=== PATIENT | female | born 1960 | race Caucasian/White ===

== ENCOUNTER → 2016-08-23 | Outpatient (CLI) | payer BC ==
--- NOTE | 2016-08-24 05:52 | WWHP ---
DATE OF SERVICE: 08/23/2016 CHIEF COMPLAINT: The patient is here for her routine gynecologic exam and mammogram. HPI: This is a 56-year-old G0 with an LMP of 2008. The patient is without gynecologic complaints and denies any postmenopausal bleeding. She has been on low-dose HRT for a number of years. She has been prescribed HRT by her primary care physician. She tried to wean off of HRT in 02/18, but the more she decreased the dose the greater her hot flashes were. She states they became severe and she was also very edgy and mood and therefore she started HRT back up again and she states she is doing much better with HRT. PAST MEDICAL HISTORY: Chronic hypertension, asthma and allergies, overactive bladder and anxiety. MEDICATIONS: 1. Femhrt 1/5 one daily. 2. Mobic 15 mg daily. 3. Lasix 20 mg daily. 4. Lexapro 20 mg daily. 5. Potassium supplement 1 daily. 6. Singulair 10 mg daily. 7. Ditropan XL 10 mg daily. 8. Multivitamin 1 daily. 9. Ke[place]-3 supplement daily. Allergies to SULFA which caused difficulty breathing and eye swelling. PAST SURGICAL HISTORY: Left knee replacement 2011 and right knee replacement 2015, also hand surgery in the past. PAST VISUAL SPECIALIST HISTORY: She has been menopausal since 2007 and has no history of STDs. SOCIAL HISTORY: She denies tobacco and drug use and has about 5 alcoholic drinks per year. 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 FAMILY HISTORY: Father had an SC, aortic aneurysm and macular degeneration. Mother had macular degeneration and dementia. Brother and an uncle had renal disease. She denies family history of cancer of the breast, uterus, ovaries or colon. REVIEW OF SYSTEMS: She has lost about 13 pounds with Weight [employer] recently. This has been with diet and exercise. She denies respiratory, cardiac, or GI problems. PHYSICAL EXAM: Blood pressure 163/79. Height 5 feet 7 inches. Weight 317 pounds. Temperature 97.7, pulse 79. This a well-developed, obese white female who is alert and oriented x3 in no acute distress. HEENT is within normal limits. NECK: Supple without mass or thyromegaly. CHEST AND LUNGS: Clear to auscultation. HEART: Regular rate and rhythm. Breasts are without mass or discharge. Axillary exam is negative for adenopathy. BACK: Negative for CVA tenderness. ABDOMEN: Obese, soft, nontender, without palpable masses. PELVIC EXAM: External genitalia appears normal. Cervix and vagina appear normal with minimal atrophy. There is no unusual discharge and no evidence of prolapse. The uterus is midposition, nongravid size and nontender. There are no palpable adnexal masses or tenderness. Bimanual examination is limited secondary to her size. Rectovaginal exam is negative for mass or tenderness and is negative for occult blood. EXTREMITIES: Nontender. IMPRESSION: 1. A 56-year-old menopausal female on HRT. 2. Obesity. 3. Unremarkable gynecologic exam. PLAN: 1. Pap smear was performed. 2. Self-breast examination was discussed. 3. Mammogram will be done today. 4. Osteoporosis prevention was discussed. 5. I have recommended screening colonoscopy based on her age and she states she will do this through her family doctor. 6. We had a long discussion regarding HRT including the possible increased risk for heart attack, stroke and breast cancer. She states she has weighed the benefits and the risks and would like to continue HRT at this time. I have recommended that she try to wean down or off at least yearly. She states she had a prescription for her HRT and this was given through her family physician. 7. She will follow up with Dr. Villeda regarding her elevated blood pressures. 8. She will return in one year.
--- NOTE | 2016-08-24 09:21 | MM ---
Reason for exam: screening (asymptomatic). Last mammogram was performed 1 year ago. History: Patient is postmenopausal, history of other cancer, and is nulliparous. Taking estrogen for 2 years 6 months beginning at age 50. Taking progesterone for 2 years 6 months beginning at age 50. Physical Findings: A clinical breast exam by your physician is recommended on an annual basis and results should be correlated with mammographic findings. MG Screening Mammo w CAD Bilateral CC and MLO view(s) were taken. Prior study comparison: August 18, 2015, bilateral MG diagnostic mammo w CAD ABIOLA. August 11, 2014, right breast MG work up mamm w CAD RT. The breast tissue is heterogeneously dense. This may lower the sensitivity of mammography. Finding: There is a high density, indistinct round mass located 9 cm from the nipple in the middle position of the right breast, may be summation. New finding since August 18, 2015 and August 11, 2014. ASSESSMENT: Incomplete: need additional imaging evaluation, BI-RAD 0 RECOMMENDATION: Special view mammogram of the right breast. If lesion persists on supplemental views, image directed ultrasound is recommended. [facility] will attempt to contact patient to return for supplemental views and ultrasound if indicated.
== END | disposition home or self-care (01) ==
LOC: WWCWWP 14:41
PROVIDERS: ATTEND Obstetrics & Gynecology
DX: Z12.31 Encounter for screening mammogram for malignant neoplasm of breast (principal)

== ENCOUNTER → 2016-08-31 | Outpatient (CLI) | payer BC ==
--- NOTE | 2016-08-31 09:48 | MM ---
Reason for exam: additional evaluation requested from abnormal screening. Last mammogram was performed less than 1 month ago. History: Patient is postmenopausal, history of other cancer, and is nulliparous. Taking estrogen for 2 years 6 months beginning at age 50. Taking progesterone for 2 years 6 months beginning at age 50. Physical Findings: Nurse did not find any significant physical abnormalities on exam. MG Work Up Mamm w CAD RT ML, spot compression CC, and spot compression MLO view(s) were taken of the right breast. Prior study comparison: August 23, 2016, bilateral MG screening mammo w CAD. August 18, 2015, bilateral MG diagnostic mammo w CAD ABIOLA. There are scattered fibroglandular densities. Asymmetric breast tissue on the CC view only. No significant new findings when compared with previous films. These results were verbally communicated with the patient and result sheet given to the patient on 08/31/16. ASSESSMENT: Incomplete: need additional imaging evaluation, BI-RAD 0 RECOMMENDATION: Ultrasound of the right breast. (10-2 o'clock, 9cm from the nipple)
--- NOTE | 2016-08-31 09:50 | USB ---
Reason for exam: additional evaluation requested from abnormal screening. History: Patient is postmenopausal, history of other cancer, and is nulliparous. Taking estrogen for 2 years 6 months beginning at age 50. Taking progesterone for 2 years 6 months beginning at age 50. US Breast Workup Limited RT Right breast ultrasound demonstrates a 0.2 x 0.3 x 0.3cm oval lesion too small to characterize at 10 o'clock. These results were verbally communicated with the patient and result sheet given to the patient on 08/31/16. ASSESSMENT: Suspicious, BI-RAD 4 RECOMMENDATION: Ultrasound core biopsy of the right breast. Called Dr. Johnson with mammographic findings and has scheduled an appointment for the patient for 09/02/16 at 10:[address] Vela. PRELIMINARY REPORT CALLED AND FAXED TO DR. VELA ON 08/31/16/TP.
== END | disposition home or self-care (01) ==
LOC: RADMAMWWP 06:52
PROVIDERS: ATTEND Obstetrics & Gynecology
DX: R92.8 Other abnormal and inconclusive findings on diagnostic imaging of breast (principal)
CPT/HCPCS: 76642; G0206

== ENCOUNTER → 2016-09-08 | Day surgery (SDC) | payer BC ==
[2016-09-08 11:37] VITALS: RESP 16; TEMP 97.8; BMI 49.6
[2016-09-08 12:45] VITALS: BP 129/70; PULSE 74
--- NOTE | 2016-09-08 13:02 | USB ---
EXAMINATION TYPE: US breast aspiration single RT, MG diagnostic mammo RT wo CAD DATE OF EXAM: 09/08/2016 COMPARISON: NONE CLINICAL HISTORY: R92.8 ABN MAMMO. Please note previous report indicates lesion at the right 10:00 position however this was mislabeled and the lesion is within the right breast 2:00 position. Informed consent was obtained and all the patient's questions were answered. Standard sterile technique was utilized. 1% lidocaine was injected for local anesthesia. The patient was prepped and draped in the usual sterile fashion. 25- gauge needle was introduced into the lesion in question and approximately 0.5 cc of aspirate was obtained. Microclip marker was deployed at the site of aspiration. Postprocedural mammogram demonstrates appropriate deployment of clip marker device. Patient tolerated the procedure well and left the department in stable condition. Aspirate wasn't sent to cytology for further evaluation. IMPRESSION: Successful ultrasound-guided cyst aspiration right breast 2:00 position. Pathology Results: Benign BREAST, RIGHT, ASPIRATE: VIRTUALLY ACELLULAR SPECIMEN CONSISTING OF BLOOD, NON- DIAGNOSTIC. Recommendation Follow up mammogram of the right breast in 6 months. Non-diagnostic results. The 2 o'clock biopsy clip does not correspond to the 11- 12 o'clock mammographic focal asymmetry. A 6 moths follow up mammogram recommended. SAMANTHAD
== END ==
LOC: RADUSWWP 11:06
PROVIDERS: ATTEND Surgery
DX: N60.01 Solitary cyst of right breast (principal); R92.8 Other abnormal and inconclusive findings on diagnostic imaging of breast
CPT/HCPCS: 88305; 88173; 76942; 19000; G0206; A4648; J2001

== ENCOUNTER → 2017-03-07 | Outpatient (CLI) | payer BC ==
--- NOTE | 2017-03-07 11:59 | MM ---
Reason for exam: follow-up at short interval from prior study. Last mammogram was performed 6 months ago. History: Patient is postmenopausal, history of other cancer, and is nulliparous. Benign US breast aspiration single RT of the right breast, September 08, 2016. Took estrogen for 2 years 6 months beginning at age 50. Took progesterone for 2 years 6 months beginning at age 50. Physical Findings: Nurse did not find any significant physical abnormalities on exam. MG 3D Diag Mammo W/Cad RT CC and MLO view(s) were taken of the right breast. Prior study comparison: September 08, 2016, right breast MG diagnostic mammo RT wo CAD. August 31, 2016, right breast MG work up mamm w CAD RT. The breast tissue is heterogeneously dense. This may lower the sensitivity of mammography. The previously seen focal asymmetry at 11 o'clock middle depth is unchanged from the prior. This appears as fibroglandular tissue on 3D. Precautionary 6 month follow up is recommended. These results were verbally communicated with the patient and result sheet given to the patient on 03/07/17. ASSESSMENT: Probably benign, BI-RAD 3 RECOMMENDATION: Follow-up diagnostic mammogram of both breasts in 6 months. Back on schedule for August 2017.
== END | disposition home or self-care (01) ==
LOC: RADMAMWWP 10:44
PROVIDERS: ATTEND Family Medicine
DX: R92.8 Other abnormal and inconclusive findings on diagnostic imaging of breast (principal)
CPT/HCPCS: 77065; G0279

== ENCOUNTER → 2017-04-20 | Outpatient (CLI) | payer BC ==
--- NOTE | 2017-04-20 18:27 | CONS ---
CONSULTATION DATE OF SERVICE: 04/20/2016. HISTORY: A 56-year-old lady, has been evaluated in the sleep center for possible obstructive sleep apnea-hypopnea syndrome. HISTORY: Sleep awake evaluation. The patient's usual sleep schedule is from 9 p.m. to 5 a.m. on weekdays and from around 9 p.m. to 8 a.m. on weekends. No problem with falling asleep. No TV in bedroom. Patient sleeps with her , according to him, she has snoring, episodes of stopped breathing, and grinding teeth. The patient wakes up from sleep with a dry mouth, gasping for air, sweating, restless legs, up to 6 times per night with up to 4 episodes of nocturia. No history of hypnagogic hallucinations, sleep paralysis or cataplexy. During the day, patient feels significantly sleepy. [place] Sleepiness Scale is in high range of 14. Usually patient does not take any naps. PAST MEDICAL HISTORY: Positive for hypertension, swelling of the legs, depression, polyarthritis, asthma. PAST SURGICAL HISTORY: Bilateral total knee replacement, several surgeries on the finger for fusion of interphalangeal joints for severe arthritis, and hernia repair. MEDICATIONS: 1. Singulair. 2. Lexapro. 3. Lasix. 4. Potassium supplement. 5. Multivitamin supplements. 6. . 7. Glucosamine with chondroitin. 8. Carvedilol. 9. Dulera on p.r.n. basis, inhaler. SOCIAL HISTORY: Positive for smoking one pack for 16 years, quit 20 years ago. Alcohol consumption very rarely. FAMILY HISTORY: Heart problems, arthritis, snoring, diabetes, thyroid problems. REVIEW OF SYSTEMS: Multiple awakenings from sleep, sleepiness during the day, swelling of the legs. PHYSICAL EXAMINATION: GENERAL A pleasant patient without any distress. VITAL SIGNS BP 149/69, HR 79, RR 16, height 5 feet 6 inches, weight 327.8, BMI 52.7, neck 17-1/2 inches circumference, temperature 98.2, oxygen saturation at room air 93%. HEENT: PERRLA, EOMI, evaluation of oropharynx showed extremely low position of soft palate. Mallampati 4. Tongue protrudes midline. NECK: Supple, no JVD. Thyroid is not palpable. LUNGS: Ear to percussion and to auscultation. Good air exchange. No wheezing or rhonchi. HEART: S1, S2 regular. No murmurs, gallops, or rubs. ABDOMEN: Obese. Soft and nontender. Bowel sounds are present. No organomegaly appreciated. EXTREMITIES: 2+ ankle edema. No clubbing or cyanosis. Hands, possible ulnar deformity of joints. WORKFORCE SERVICES REPRESENTATIVE: Awake, alert, and oriented X3. Cranial nerves 2 to 7 intact. There is no fasciculation or atrophy. noted. No focal deficits observed. IMPRESSION: 1. Snoring, witnessed episodes of stopped breathing during the sleep, extremely low position of soft palate, excessive daytime sleepiness, wide neck, obstructive sleep apnea-hypopnea syndrome. 2. Obesity, BMI 52.7. 3. Hypertension. Significant swelling of both legs. 4. Depression. 5. History of polyarthritis. 6. Status post fusion on several interphalangeal joints of both hands, for arthritis. 7. Asthma. 8. Status post bilateral total knee replacement. 9. Status post hernia repair. PLAN: 1. Polysomnography for evaluation of patient's breathing during sleep. 2. CPAP/BiPAP titration if sleep study confirms obstructive sleep apnea-hypopnea syndrome. 3. Preferable position during sleep on the side. 4. No driving if patient feels any sleepiness. Patient is aware of civil and criminal liability for unsafe driving. 5. I will see patient for follow up visit to explain results of testing and following plan. Thank you very much for referring this patient for consultation. Sincerely, Liam Rodas MD, PhD, FAASM Diplomat of [place] [employer] [place] [employer] Mat Gauger of [facility] MMODL / IJN: [id number] /
== END | disposition home or self-care (01) ==
LOC: SLEEP 15:53
PROVIDERS: ATTEND Internal Medicine
DX: G47.33 Obstructive sleep apnea (adult) (pediatric) (principal); E66.9 Obesity, unspecified; I10 Essential (primary) hypertension; J45.909 Unspecified asthma, uncomplicated; F32.9 Major depressive disorder, single episode, unspecified; Z87.39 Personal history of other diseases of the musculoskeletal system and connective tissue; Z98.1 Arthrodesis status; Z96.653 Presence of artificial knee joint, bilateral; Z98.890 Other specified postprocedural states; Z68.43 Body mass index [BMI] 50.0-59.9, adult; Z79.899 Other long term (current) drug therapy; Z87.891 Personal history of nicotine dependence
CPT/HCPCS: 99211

== ENCOUNTER → 2017-05-16 | Outpatient (CLI) | payer BC ==
--- NOTE | 2017-05-16 12:29 | P.STRESS ---
- Stress Test Note Stress Test Results/Findings: Exam Performed: stress echo exercise Exam Date: 05/16/17 Reason for Exam: ABNORMAL EKG Height: 5 ft 7 in Weight: 149.685 kg Protocol: TING Stage: 2 Duration of Exercise: 4:00 Resting Heart Rate: 102 Resting Blood Pressure: 166/54 Maximum Achieved Heart Rate: 152 Maximum Achieved Blood Pressure: 192/81 85% PMHR: 139 100% PMHR: 163 METS: 5.8 Technologist Comment: Stress Test Results/Findings: This is a 56-year-old female with history of hypertension, hypercholesterolemia and family history of ischemic heart disease being evaluated because of symptoms of shortness of breath and abnormal EKG. Baseline EKG showed sinus rhythm with a normal PA interval and QRS duration. Patient walked on the Ting protocol for 4 minutes achieving a maximal heart rate of 152 with blood pressure 184/65. EKGs taken during and after the exercise showed about 1 mm J- point depression with upsloping ST segments. Patient did not sense any chest pain. She did complain of shortness of breath. Echo data: Baseline echo images showed normal wall motion and thickening. Exercise echo images showed lack of augmentation of the wall motion in the anteroapical and also in the lateral wall area compared to the rest of the segments which showed good augmentation. Final impression: #1. Borderline ST-T changes with upsloping ST segments which are nonspecific though ischemia cannot be excluded. #2. Ischemia in the anterior and lateral wall cannot be excluded on this study. Further evaluation may be necessary to rule out ischemia.
--- NOTE | 2017-05-16 13:34 | ECHOS ---
- Stress Test Note Stress Test Results/Findings: Exam Performed: stress echo exercise Exam Date: 05/16/17 Reason for Exam: ABNORMAL EKG Height: 5 ft 7 in Weight: 149.685 kg Protocol: TING Stage: 2 Duration of Exercise: 4:00 Resting Heart Rate: 102 Resting Blood Pressure: 166/54 Maximum Achieved Heart Rate: 152 Maximum Achieved Blood Pressure: 192/81 85% PMHR: 139 100% PMHR: 163 METS: 5.8 Technologist Comment: Stress Test Results/Findings: This is a 56-year-old female with history of hypertension, hypercholesterolemia and family history of ischemic heart disease being evaluated because of symptoms of shortness of breath and abnormal EKG. Baseline EKG showed sinus rhythm with a normal VT interval and QRS duration. Patient walked on the Ting protocol for 4 minutes achieving a maximal heart rate of 152 with blood pressure 184/65. EKGs taken during and after the exercise showed about 1 mm J- point depression with upsloping ST segments. Patient did not sense any chest pain. She did complain of shortness of breath. Echo data: Baseline echo images showed normal wall motion and thickening. Exercise echo images showed lack of augmentation of the wall motion in the anteroapical and also in the lateral wall area compared to the rest of the segments which showed good augmentation. Final impression: #1. Borderline ST-T changes with upsloping ST segments which are nonspecific ,though ischemia cannot be excluded. #2. Ischemia in the anterior and lateral wall cannot be excluded on this study. Further evaluation may be necessary to rule out ischemia. LORRAINE
--- NOTE | 2017-05-16 18:57 | ECHOF ---
Referral Reason:R94.31 abnormal EKG, I10 hypertension MEASUREMENTS -------- HEIGHT: 170.2 cm WEIGHT: 149.7 kg BP: RVIDd: 3.3 cm (< 3.3) IVSd: 1.2 cm (0.6 - 1.1) LVIDd: 5.1 cm (3.9 - 5.3) LVPWd: 1.2 cm (0.6 - 1.1) IVSs: 1.8 cm LVIDs: 3.2 cm LVPWs: 1.6 cm LA Diam: 3.6 cm (2.7 - 3.8) LAESV Index (A-L): 27.78 ml/m Ao Diam: 3.7 cm (2.0 - 3.7) AV Cusp: 2.6 cm (1.5 - 2.6) MV EXCURSION: 14.577 mm (> 18.000) MV EF SLOPE: 48 mm/s (70 - 150) EPSS: 0.9 cm MV E David: 0.67 m/s MV DecT: 280 ms MV A Davdi: 0.89 m/s MV E/A Ratio: 0.75 FINDINGS -------- Sinus rhythm. This was a technically adequate study. The left ventricular size is normal. There is borderline concentric left ventricular hypertrophy. Overall left ventricular systolic function is normal with, an EF between 55 - 60 %. The right ventricle is mildly enlarged. Normal LA size by volume 22+/-6 ml/m2. The right atrium is normal in size. There is mild aortic valve sclerosis. Mild mitral annular calcification present. The tricuspid valve appears structurally normal. Trace/mild (physiologic) pulmonic regurgitation. The aortic root is dilated measuring 3.7cm. Normal inferior vena cava with normal inspiratory collapse consistent with estimated right atrial pre ssure of 5 mmHg. There is no pericardial effusion. CONCLUSIONS -------- 1. Sinus rhythm. 2. This was a technically adequate study. 3. The left ventricular size is normal. 4. There is borderline concentric left ventricular hypertrophy. 5. Overall left ventricular systolic function is normal with, an EF between 55 - 60 %. 6. The right ventricle is mildly enlarged. 7. Normal LA size by volume 22+/-6 ml/m2. 8. The right atrium is normal in size. 9. There is mild aortic valve sclerosis. 10. Mild mitral annular calcification present. 11. The tricuspid valve appears structurally normal. 12. Trace/mild (physiologic) pulmonic regurgitation. 13. The aortic root is dilated measuring 3.7cm. 14. Normal inferior vena cava with normal inspiratory collapse consistent with estimated right atrial pressure of 5 mmHg. 15. There is no pericardial effusion. CHERRY GROWER: Kerry Velazquez RDCS
== END | disposition home or self-care (01) ==
LOC: RADNMMAIN 10:05
PROVIDERS: ATTEND Family Medicine
DX: I11.9 Hypertensive heart disease without heart failure (principal); I37.1 Nonrheumatic pulmonary valve insufficiency; I35.8 Other nonrheumatic aortic valve disorders; Z88.2 Allergy status to sulfonamides
CPT/HCPCS: 93017; 93306; 93350

== ENCOUNTER → 2017-05-30 | Outpatient (CLI) | payer BC ==
--- NOTE | 2017-05-30 17:43 | XR ---
EXAMINATION TYPE: XR chest 2V DATE OF EXAM: 05/30/2017 COMPARISON: Previous dated 09/30/2012 HISTORY: J 45.397 TECHNIQUE: Frontal and lateral views of the chest are obtained. FINDINGS: There is no focal air space opacity, pleural effusion, or pneumothorax seen. The cardiac silhouette size is within normal limits. There are prominent lung volumes. The osseous structures ar e intact. IMPRESSION: No acute cardiopulmonary process.
== END | disposition home or self-care (01) ==
LOC: RADXRMAIN 13:12
PROVIDERS: ATTEND Family Medicine
DX: J45.909 Unspecified asthma, uncomplicated (principal); Z78.0 Asymptomatic menopausal state
CPT/HCPCS: 71046

== ENCOUNTER → 2017-06-19 | Outpatient (CLI) | payer BC ==
--- NOTE | 2017-06-20 10:33 | BD ---
EXAMINATION TYPE: MG DEXA axial skeleton. DATE OF EXAM: 06/19/2017 COMPARISON: NONE CLINICAL HISTORY: Postmenopausal female Height: 65.7 IN Weight: 325 LBS FRAX RISK QUESTIONS: Alcohol (3 or more units per day): NO Family History (Parent hip fracture): NO Glucocorticoids (More than 3mos): NO (Ex: prednisone, prednisolone, methylprednisolone, dexamethasone, and hydrocortisone). History of Fracture in Adulthood: NO Secondary Osteoporosis: 1. Type 1 Diabetes: NO 2. Hyperthyroidism: NO 3. Menopause before 45: NO 4. Malnutrition: NO 5. Chronic liver disease: NO Rheumatoid Arthritis: NO Current Tobacco Use: NO RISK FACTORS HISTORY OF: History of Wrist Fracture: YES LEFT When: 1978 Family History of Osteoporosis: YES MOTHER AND SISTER Active: YES Postmenopausal woman: AGE 47 Take estrogen and/or progesterone medications: NOT NOW How long: CONTROL FOR 5 YEARS AND HORMONES FOR 5 YEARS MEDICATIONS: Additional Medications: CALCIUM, VIT D, SINGULAIR, LEXAPRO, LASIX, POTASSIUM, GLUCOSAMINE, DULERA, CO REG EXAM MEASUREMENTS: Bone mineral densitometry was performed using the [employer] System. Bone mineral density as measured about the Lumbar spine is: ----- L1-L4(G/cm2): 1.350 T Score Values are as follows: ----- L2: 0.8 ----- L3: 1.8 ----- L4: 0.5 ----- L1-L4: 1.4 Bone mineral density BASELINE Bone mineral density about the R hip (g/cm2): 0.829 Bone mineral density about the L hip (g/cm2): 0.898 T Score values are as follows: -----R Neck: -1.0 -----L Neck: -1.5 -----R Total: 0.4 -----L Total: -0.1 Bone mineral density BASELINE IMPRESSION: Osteopenia (T Score between -2.5 and -1) at Femoral neck level in the left hip. There is slightly increased risk of fracture and the patient may be considered for treatment. Re-Screen 2-5 years. NOTE: T-SCORE=SD OF THE YOUNG ADULT MEAN.
== END | disposition home or self-care (01) ==
LOC: RADBDWWP 16:04
PROVIDERS: ATTEND Family Medicine
DX: M85.859 Other specified disorders of bone density and structure, unspecified thigh (principal); Z78.0 Asymptomatic menopausal state
CPT/HCPCS: 77080

== ENCOUNTER → 2017-09-12 | Outpatient (CLI) | payer BC ==
--- NOTE | 2017-09-12 12:01 | MM ---
Reason for exam: additional evaluation requested from prior study. Last mammogram was performed 6 months ago. History: Patient is postmenopausal, history of other cancer, and is nulliparous. Benign US breast aspiration single RT of the right breast, September 08, 2016. Took estrogen for 2 years 6 months beginning at age 50. Took progesterone for 2 years 6 months beginning at age 50. Physical Findings: Nurse did not find any significant physical abnormalities on exam. MG 3D Diag Mammo W/Cad ABIOLA Bilateral CC and MLO view(s) were taken. Prior study comparison: March 07, 2017, right breast MG 3d diag mammo w/cad RT. September 08, 2016, right breast MG diagnostic mammo RT wo CAD. The breast tissue is heterogeneously dense. This may lower the sensitivity of mammography. Previous mammotome biopsy in the right breast. There is chronic nodularity in the left breast. There is no discrete abnormality. These results were verbally communicated with the patient and result sheet given to the patient on 09/12/17. ASSESSMENT: Benign, BI-RAD 2 RECOMMENDATION: Routine screening mammogram of both breasts in 1 year.
== END | disposition home or self-care (01) ==
LOC: RADMAMWWP 10:15
PROVIDERS: ATTEND Family Medicine
DX: R92.8 Other abnormal and inconclusive findings on diagnostic imaging of breast (principal)
CPT/HCPCS: 77062; 77066

== ENCOUNTER 2017-10-31 17:42 | Emergency (ER) | payer BC, OTHER ==
[2017-10-31 17:46] VITALS: RESP 18; TEMP 98.2
[2017-10-31] MEDS ORDERED: HYDROcodone/APAP 5-325MG 1 EACH TAB PO STA (17:51)
--- NOTE | 2017-10-31 18:01 | ED ---
Fall HPI - General Chief Complaint: Fall Stated Complaint: Fell off ladder/hand injury Time Seen by Provider: 10/31/17 17:47 Source: patient, RN notes reviewed Mode of arrival: ambulatory - History of Present Illness Initial Comments: This a 57-year-old female past history of hypertension and extensive osteoarthritis including bilateral thumb osteoarthritis with previous fusions who presents today for chief complaint of left thumb pain. 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 She merely noticed pain in her left thumb base. She had previous left thumb surgery for osteoporosis was worried she damaged the previous repair. She states the pain is 10/10 sharp shooting pain in the left thumb. She states that she is able to range the thumb but not fully. Patient denies numbness, tingling, loss sensation, muscle weakness, wrist pain or injury to any other extremity. She denies any chest pain, shorts breath, palpitations or dizziness prior to falling she states that this was mechanical nature from losing balance on the step. Patient denies falling hitting her head, or any injury to the neck. Denies loss consciousness. Patient does admit to swelling of the left thumb. Remainder ROS (-). - Related Data Home Medications Medication Instructions Recorded Confirmed Furosemide [Lasix] 20 mg PO DAILY 08/18/15 09/08/16 Meloxicam [Mobic] 15 mg PO DAILY 08/18/15 09/08/16 Montelukast [Singulair] 10 mg PO HS 08/18/15 09/08/16 Multivitamin with Iron 1 tab PO DAILY 08/18/15 09/08/16 [Multivitamins with Iron] [place]-3 Fatty Acids/Fish Oil [Fish 1 cap PO DAILY 08/18/15 09/08/16 Oil 1,000 mg Softgel] Escitalopram [Lexapro] 20 mg PO DAILY 08/31/16 09/08/16 Potassium Chloride [K-Tab ER] 10 meq PO DAILY 08/31/16 09/08/16 Allergies Allergy/AdvReac Type Severity Reaction Status Date / Time Sulfa (Sulfonamide Allergy Dyspnea Verified 10/31/17 17:46 Antibiotics) Review of Systems ROS Statement: Those systems with pertinent positive or pertinent negative responses have been documented in the HPI. ROS Other: All systems not noted in ROS Statement are negative. Constitutional: Denies: fever, chills ENT: Denies: ear pain, throat pain Respiratory: Denies: cough, dyspnea Cardiovascular: Denies: chest pain, palpitations Gastrointestinal: Denies: abdominal pain, nausea, vomiting, diarrhea, constipation Genitourinary: Denies: urgency Musculoskeletal: Denies: back pain Skin: Denies: rash, lesions Neurological: Denies: headache, weakness, numbness, paresthesias, confusion Past Medical History Past Medical History: Asthma, Hypertension History of Any Multi-Drug Resistant Organisms: None Reported Past Surgical History: Orthopedic Surgery Additional Past Surgical History / Comment(s): bilateral total knee replacement , right finger digits 2,3,5 left digits 2,3 arthiritis removed, bilateral bone fusion to thumbs Past Anesthesia/Blood Transfusion Reactions: Postoperative Nausea & Vomiting ( PONV) Additional Past Anesthesia/Blood Transfusion Reaction / Comment(s): antiemetic administered and "it helped alot' Past Psychological History: Anxiety Smoking Status: Former smoker Past Alcohol Use History: Rare Past Drug Use History: None Reported General Exam - General Exam Comments Initial Comments: General: The patient is awake and alert, in no distress, and does not appear acutely ill. Eye: Pupils are equal, round and reactive to light, extra-ocular movements are intact. No nystagmus. There is normal conjunctiva bilaterally. No signs of icterus. Cardiovascular: There is a regular rate and rhythm. No murmur, rub or gallop is appreciated. Respiratory: Lungs are clear to auscultation, respirations are non-labored, breath sounds are equal. No wheezes, stridor, rales, or rhonchi. Musculoskeletal: soft tissue swelling over the thenar eminence of the left thumb. No obvious deformity or dislocation. Full ROM at the MCP joint of left thumb, able flex/extend at the PIP and DIP joints of the thumb. 5/5 strength at joints of thumb/hands b/l. Tenderness with all motion. Pt is able to fully flex/ extend at the wrists b/l. Sensation intact over the thumbs equally b/l as well as the UE. Radial pulses equal bilaterally 2+, capillary refill <2seconds. Neurological: A&O x 3. CN II-XII intact, There are no obvious motor or sensory deficits. Coordination appears grossly intact. Speech is normal. Skin: Skin is warm and dry and no rashes or lesions are noted. Psychiatric: Cooperative, appropriate mood & affect, normal judgment. Limitations: no limitations Course Vital Signs 10/31/17 10/31/17 17:44 18:56 Temperature 98.2 F 98.2 F Pulse Rate 101 H 98 Respiratory 18 18 Rate Blood Pressure 191/80 168/80 O2 Sat by Pulse 98 99 Oximetry Medical Decision Making - Medical Decision Making 57you female with CC of left thumb pain s/p fall concerning for possible fracture. Pt was in pain upon arrival. Given norco 5mg for pain mgmt. XR of the left thumb was obtained revealing narrowing at the first MCP joint with some spurring, radiology read as partial ankylotic changes at MCP joint. There is no note of acute fracture. Upon reading radiological imaging with Dr. Cannon, we see small area of lucency which could be possible occult fracture. Patient was placed in a thumb spica splint. Patient neurovascularly intact, compartments soft and compressible. Patient is able to range at the MCP, PIP and PIP joints of the left thumb without difficulty. Patient does admit to tenderness with range motion at the MCP joint. Pt instructed to follow-up with orthopedics in one to 2 days. Patient was instructed to use ibuprofen 800 mg every 6 hours for pain management as needed, as well as elevated and icing area for swelling. Patient was educated on signs and symptoms of neurovascular compromise instructed to return to emergency department if these arise. Patient agreed plan. Patient denies questions at this time. At this time we feel pt is stable for d/c. Disposition Clinical Impression: Pain of left thumb Disposition: HOME SELF-CARE Condition: Good Instructions: Finger Sprain (ED) Additional Instructions: Please use medication as discussed. Please follow-up with family doctor in the next 2 days of symptoms have not improved. Please return to emergency room if the symptoms increase or worsen or for any other concerns. Is patient prescribed a controlled substance at d/c from ED?: No Referrals: Maritza Villeda MD [Primary Care Provider] - 1-2 days Raghavendra Elias DO [Doctor of Osteopathic Medicine] - 1-2 days Time of Disposition: 18:37
--- NOTE | 2017-10-31 18:24 | XR ---
EXAMINATION TYPE: XR hand complete LT DATE OF EXAM: 10/31/2017 COMPARISON: NONE HISTORY: Thumb pain TECHNIQUE: 3 views FINDINGS: There is narrowing of the first carpometacarpal joint space with some spurring. There are p ins fusing the DIP joints of the index finger and middle finger. There is moderate spurring and narro wing at the DIP joint of the ring finger. IMPRESSION: There is partial ankylotic change at the first carpometacarpal joint. No acute bony abnor mality.
[2017-10-31 18:57] VITALS: BP 168/80; PULSE 98
== END 2017-10-31 18:57 | disposition home or self-care (01) ==
LOC: EC 17:42
DX: M79.645 Pain in left finger(s) (principal); J45.909 Unspecified asthma, uncomplicated; I10 Essential (primary) hypertension; Z87.891 Personal history of nicotine dependence; Z79.1 Long term (current) use of non-steroidal anti-inflammatories (NSAID); Z79.899 Other long term (current) drug therapy; Z88.2 Allergy status to sulfonamides
CPT/HCPCS: 29125; 99283

== ENCOUNTER → 2018-03-07 | Outpatient (CLI) | payer BC ==
[2018-03-07 15:11] VITALS: BP 159/89; PULSE 91; RESP 16; TEMP 97.9; BMI 52.6
--- NOTE | 2018-03-07 15:37 | P.HPBAR ---
Bariatric H&P - History & Physicial H&P Date: 03/07/18 History & Physicial: Visit/CC: INITIAL VISIT Patient initial contact: 01/29/2018 Initial weight: 147.985 kg Initial weight in pounds: 326.25 Height: 5 ft 6 in Initial BMI: 52.6 Last weight: Current weight: 147.985 kg Current weight in pounds: 326.25 Current BMI: 52.6 [place] body weight (based on NIH guidelines): 58.967 kg Excess body weight loss: 0.0% The patient is a 57 year-old F who presents for Bariatric Assessment. HPI: She is looking into a sleeve gastrectomy. She has tried medical weight loss clinic, adipex, and apps for tracking her food. Most weight loss on Atkins was 70-lbs. Highest weight 338 pounds. She has occassional heart burn. Mom, dad , grandpa and sister with obesity. She still has gallbladder. No family history of gallbladder. ABDOMEN: No abdominal pain. PLAN: 1. Sleeve gastrectomy described. 2. Blood work today. 3. EGD 4. Goal is end of May Past Medical History Past Medical History: Asthma, Hypertension History of Any Multi-Drug Resistant Organisms: None Reported Past Surgical History: Orthopedic Surgery Additional Past Surgical History / Comment(s): bilateral total knee replacement , right finger digits 2,3,5 left digits 2,3 arthiritis removed, bilateral bone fusion to thumbs Past Anesthesia/Blood Transfusion Reactions: Postoperative Nausea & Vomiting ( PONV) Additional Past Anesthesia/Blood Transfusion Reaction / Comm: antiemetic administered and "it helped alot' Past Psychological History: Anxiety Smoking Status: Former smoker Past Alcohol Use History: Rare Additional Past Alcohol Use History / Comment(s): smoked from age 18 to 34 Past Drug Use History: None Reported Surgical - Exam Vital Signs Temp Pulse Resp BP 97.9 F 91 16 159/89 03/07/18 15:06 03/07/18 15:06 03/07/18 15:06 03/07/18 15:06 Bariatric Checklist Checklist: Plan: Checklist: EGD: 1. Hiatal hernia: 2. H. Pylori: HgbA1c: Vitamin D: Smoking: Former smoker Primary care physician referral: Psychiatry clearance: Cardiology clearance: Sleep study: Diet journal: VTE risk score: VTE risk level: Rehab needs at discharge:
[2018-03-07 16:47] LABS: HCT 44.5 % (34.0-46.0); HGB 13.9 gm/dL (11.4-16.0); MCH 26.6 pg (25.0-35.0); MCHC 31.2 g/dL (31.0-37.0); MCV 85.4 fL (80.0-100.0); Mean Platelet Volume 6.5; Platelet Count 332 k/uL (150-450); RBC 5.21 m/uL (3.80-5.40); RDW 14.5 % (11.5-15.5); WBC 14.2 k/uL (3.8-10.6)
[2018-03-08 02:54] LABS: Iron Saturation 10.98 (12.00-45.00)
[2018-03-08 03:05] LABS: Albumin/Globulin Ratio 2.38 (1.20-2.10); Anion Gap 11.9 mmol/L (4.00-12.00); Carbon Dioxide 27.1 mmol/L (21.6-31.8); Folate, Serum >24.0 ng/mL; Globulin 2.1 g/dL (1.6-3.3); LDL Cholesterol,Calculated 109.2 mg/dL (0.0-131.0); Potassium 4.7 mmol/L (3.5-5.5); Total Bilirubin 0.3 mg/dL (0.2-1.2); Total Protein 7.1 g/dL (6.2-8.2); VLDL Calculation 74.8 mg/dL (5.00-40.00)
[2018-03-08 04:16] LABS: Hemoglobin A1C 5.6 % (4.0-6.0)
== END | disposition home or self-care (01) ==
LOC: BARWHC3 13:12
PROVIDERS: ATTEND Surgery Plastic and Reconstructive Surgery
DX: E66.01 Morbid (severe) obesity due to excess calories (principal); E88.81 Metabolic syndrome and other insulin resistance; E44.0 Moderate protein-calorie malnutrition; E55.9 Vitamin D deficiency, unspecified; I11.9 Hypertensive heart disease without heart failure; G47.30 Sleep apnea, unspecified; F41.9 Anxiety disorder, unspecified; Z68.43 Body mass index [BMI] 50.0-59.9, adult; Z87.891 Personal history of nicotine dependence; Z98.890 Other specified postprocedural states
CPT/HCPCS: 36415; 80053; 80061; 82306; 82607; 82728; 82746; 83036; 83540; 83550; 84425; 84443; 85027; 93005; 99201

== ENCOUNTER 2018-04-16 06:54 | Day surgery (SDC) | payer BC ==
[2018-04-12 12:02] VITALS: BMI 54.1
--- NOTE | 2018-04-16 06:25 | P.GSHP ---
History of Present Illness H&P Date: 04/16/18 CHIEF COMPLAINT: GERD HISTORY OF PRESENT ILLNESS: The patient is a 57-year-old female who presents reports gastroesophageal reflux disease. Upper endoscopy was offered for further evaluation and management. PAST MEDICAL HISTORY: Please see list. PAST SURGICAL HISTORY: Please see list. MEDICATIONS: Please see list. ALLERGIES: Please see list. SOCIAL HISTORY: No illicit drug use FAMILY HISTORY: No reports of Crohn disease or ulcerative colitis. REVIEW OF ORGAN SYSTEMS: CONSTITUTIONAL: No reports of fevers or chills. GI: Denies any blood in stools or constipation. PHYSICAL EXAM: VITAL SIGNS: Stable GENERAL: Well-developed and pleasant in no acute distress. HEENT: No scleral icterus. Extraocular movements grossly intact. Moist buccal mucosa. NECK: Supple without lymphadenopathy. CHEST: Unlabored respirations. Equal bilateral excursions. CARDIOVASCULAR: Regular rate and rhythm. Distal 2+ pulses. ABDOMEN: Soft, nondistended. MUSCULOSKELETAL: No clubbing, cyanosis, or edema. ASSESSMENT: 1. Gastroesophageal reflux disease PLAN: 1. Recommend proceeding with an upper endoscopy Past Medical History Past Medical History: Asthma, Hypertension History of Any Multi-Drug Resistant Organisms: None Reported Past Surgical History: Hernia Repair, Joint Replacement, Orthopedic Surgery Additional Past Surgical History / Comment(s): bilateral total knee replacement , right finger digits 2,3,5 left digits 2,3 arthiritis removed, bilateral bone fusion to thumbs , UMBICAL HERNIA, Past Anesthesia/Blood Transfusion Reactions: Postoperative Nausea & Vomiting ( PONV) Additional Past Anesthesia/Blood Transfusion Reaction / Comment(s): antiemetic administered and "it helped alot' Smoking Status: Former smoker - Past Family History Mother Family Medical History: No Reported History Medications and Allergies Home Medications Medication Instructions Recorded Confirmed Type Furosemide [Lasix] 20 mg PO DAILY 08/18/15 04/12/18 History Montelukast [Singulair] 10 mg PO HS 08/18/15 04/12/18 History Multivitamin with Iron 1 tab PO DAILY 08/18/15 04/12/18 History [Multivitamins with Iron] Escitalopram [Lexapro] 20 mg PO DAILY 08/31/16 04/12/18 History Benralizumab [Fasenra] 30 mg SQ DIRECTED 03/08/18 04/12/18 History Calcium Carbonate/Vitamin D3 1,200 mg PO BID 03/08/18 04/12/18 History [Calcium 600-Vit D3 500 Softgel] Carvedilol [Coreg] 6.25 mg PO BID 03/08/18 04/12/18 History Glucosam/Fidel-Msm1/C/Michael/Bosw 1,200 mg PO BID 03/08/18 04/12/18 History [Glucosamine-Chondroitin Tablet] Lisinopril [Prinivil] 10 mg PO DAILY 03/08/18 04/12/18 History Mometasone/Formoterol [Dulera 200 1 puff INHALATION BID 03/08/18 04/12/18 History Mcg/5 Mcg Inhaler] Potassium 99 mg PO DAILY 03/08/18 04/12/18 History Tiotropium [place] [Spiriva] 1 cap INHALATION DAILY 03/08/18 04/12/18 History Vit C/E/Zn/Coppr/Lutein/Zeaxan 1 each PO BID 03/08/18 04/12/18 History [Preservision Areds 2 Softgel] Vitamin B Complex 1 each PO BID 03/08/18 04/12/18 History Cholecalciferol [Vitamin D3] 5,000 unit PO BID 04/12/18 04/12/18 History Ferrous Sulfate [Feosol] 325 mg PO DAILY 04/12/18 04/12/18 History Allergies Allergy/AdvReac Type Severity Reaction Status Date / Time Sulfa (Sulfonamide Allergy Dyspnea Verified 04/12/18 11:56 Antibiotics)
[~2018-04-16 06:54] MED LIST: LACTATED RINGERS 1,000 ML IV SCH; LIDOCAINE 1% 20 ML VIAL (10MG/ML) FOR IV START INTRADERMA PRN
[2018-04-16 07:23] VITALS: TEMP 97.9
[2018-04-16] MEDS ORDERED: KETAMINE 10 MG/ML 20 ML VIAL ONE (07:35)
[2018-04-16] MEDS ORDERED: PROPOFOL 10 MG/ML 20 ML VIAL IV ONE (07:35)
[2018-04-16] MEDS ORDERED: LIDOCAINE 1% INJ 10MG/ML (20 ML MDV) ONE (07:35)
[2018-04-16] MEDS ORDERED: GLYCOPYRROLATE 0.2 MG/ML 2 ML VIAL ONE (07:35)
--- NOTE | 2018-04-16 07:47 | P.PCN ---
Date of Procedure: 04/16/18 Description of Procedure: PREOPERATIVE DIAGNOSIS: Gastroesophageal reflux disease. Morbid obesity. POSTOPERATIVE DIAGNOSIS: Morbid obesity. Gastritis. Gastroesophageal reflux disease. Diaphragmatic hiatal hernia OPERATION: Esophagogastroduodenoscopy with biopsies along antrum. SURGEON: Nanci Jenkins MD ANESTHESIA: MAC. INDICATIONS: The patient is a 57-year-old female who presents with a history of reflux disease. Benefits and risks of the procedure were described. Informed consent was obtained. DESCRIPTION: The patient was brought into the endoscopy suite and laid in the left lateral decubitus position. An Olympus gastroscope was passed along the posterior oropharynx down to the distal esophagus where the squamocolumnar junction was encountered at 40 cm from the incisors. The stomach was entered and no bile reflux was found. Additional findings are listed below. Biopsies with cold forceps were obtained of the antrum. The first through third portion of the duodenum was examined and unremarkable. Retroflexion of the scope confirmed Hill grade 2 lower esophageal valve. The squamocolumnar junction demonstrated LA grade A erosive esophagitis. The stomach was desufflated. The patient tolerated the procedure well. FINDINGS: Squamocolumnar junction 40 cm from the incisors. Diaphragmatic hiatus at 41 cm. Hiatal hernia, 1 cm Hill grade 2 lower esophageal valve. LA grade A erosive esophagitis. No active duodenitis. Chronic gastritis Oxygen desaturation during procedure consistent with sleep apnea RECOMMENDATIONS: Upper endoscopy as needed. Recommend evaluation for sleep apnea and treatment Plan - Discharge Summary Discharge Rx Participant: Yes New Discharge Prescriptions: No Action Furosemide [Lasix] 20 mg PO DAILY Montelukast [Singulair] 10 mg PO HS Multivitamin with Iron [Multivitamins with Iron] 1 tab PO DAILY Escitalopram [Lexapro] 20 mg PO DAILY Glucosam/Fidel-Msm1/C/Michael/Bosw [Glucosamine-Chondroitin Tablet] 1,200 mg PO BID Carvedilol [Coreg] 6.25 mg PO BID Vit C/E/Zn/Coppr/Lutein/Zeaxan [Preservision Areds 2 Softgel] 1 each PO BID Calcium Carbonate/Vitamin D3 [Calcium 600-Vit D3 500 Softgel] 1,200 mg PO BID Vitamin B Complex 1 each PO BID Tiotropium [place] [Spiriva] 1 cap INHALATION DAILY Mometasone/Formoterol [Dulera 200 Mcg/5 Mcg Inhaler] 1 puff INHALATION BID Potassium 99 mg PO DAILY Lisinopril [Prinivil] 10 mg PO DAILY Benralizumab [Fasenra] 30 mg SQ DIRECTED Ferrous Sulfate [Feosol] 325 mg PO DAILY Cholecalciferol [Vitamin D3] 5,000 unit PO BID Discharge Medication List Furosemide [Lasix] 20 mg PO DAILY 08/18/15 [History] Montelukast [Singulair] 10 mg PO HS 08/18/15 [History] Multivitamin with Iron [Multivitamins with Iron] 1 tab PO DAILY 08/18/15 [ History] Escitalopram [Lexapro] 20 mg PO DAILY 08/31/16 [History] Benralizumab [Fasenra] 30 mg SQ DIRECTED 03/08/18 [History] Calcium Carbonate/Vitamin D3 [Calcium 600-Vit D3 500 Softgel] 1,200 mg PO BID [History] Carvedilol [Coreg] 6.25 mg PO BID 03/08/18 [History] Glucosam/Fidel-Msm1/C/Michael/Bosw [Glucosamine-Chondroitin Tablet] 1,200 mg PO BID 03/08/18 [History] Lisinopril [Prinivil] 10 mg PO DAILY 03/08/18 [History] Mometasone/Formoterol [Dulera 200 Mcg/5 Mcg Inhaler] 1 puff INHALATION BID 03/08 [History] Potassium 99 mg PO DAILY 03/08/18 [History] Tiotropium [place] [Spiriva] 1 cap INHALATION DAILY 03/08/18 [History] Vit C/E/Zn/Coppr/Lutein/Zeaxan [Preservision Areds 2 Softgel] 1 each PO BID 05/22 [History] Vitamin B Complex 1 each PO BID 03/08/18 [History] Cholecalciferol [Vitamin D3] 5,000 unit PO BID 04/12/18 [History] Ferrous Sulfate [Feosol] 325 mg PO DAILY 04/12/18 [History] Follow up Appointment(s)/Referral(s): [facility] [NON-STAFF] - 05/09/18 Patient Instructions/Handouts: Gastritis (DC), Sleep Apnea (GEN) Discharge Disposition: HOME SELF-CARE
[2018-04-16 07:53] VITALS: RESP 18
[2018-04-16 08:18] VITALS: BP 133/75; PULSE 67
== END 2018-04-16 08:35 | disposition home or self-care (01) ==
LOC: ORWHC2ENDO 06:54
PROVIDERS: ATTEND Surgery Plastic and Reconstructive Surgery
DX: K29.50 Unspecified chronic gastritis without bleeding (principal); K21.0 Gastro-esophageal reflux disease with esophagitis; J45.909 Unspecified asthma, uncomplicated; I10 Essential (primary) hypertension; E66.01 Morbid (severe) obesity due to excess calories; K44.9 Diaphragmatic hernia without obstruction or gangrene; M19.90 Unspecified osteoarthritis, unspecified site; G47.33 Obstructive sleep apnea (adult) (pediatric); Z88.2 Allergy status to sulfonamides; Z99.89 Dependence on other enabling machines and devices; Z96.653 Presence of artificial knee joint, bilateral; Z87.891 Personal history of nicotine dependence; Z79.899 Other long term (current) drug therapy; Z79.51 Long term (current) use of inhaled steroids; Z68.43 Body mass index [BMI] 50.0-59.9, adult
CPT/HCPCS: 88305; 43239; J2001; J2704

== ENCOUNTER → 2018-06-13 | Outpatient (CLI) | payer BC ==
[2018-06-13 17:29] LABS: HCT 39.6 % (34.0-46.0); HGB 12.9 gm/dL (11.4-16.0); MCH 28.4 pg (25.0-35.0); MCHC 32.6 g/dL (31.0-37.0); MCV 87.3 fL (80.0-100.0); Platelet Count 233 k/uL (150-450); RBC 4.53 m/uL (3.80-5.40); WBC 9.5 k/uL (3.8-10.6)
[2018-06-13 17:42] LABS: Anion Gap 10 mmol/L; Blood Urea Nitrogen 22 mg/dL (7-17); Carbon Dioxide 27 mmol/L (22-30); Chloride 104 mmol/L (98-107); Potassium 4.5 mmol/L (3.5-5.1); Sodium 141 mmol/L (137-145)
== END | disposition home or self-care (01) ==
LOC: LABWHC1 16:41
PROVIDERS: ATTEND Internal Medicine Cardiovascular Disease
DX: Z01.812 Encounter for preprocedural laboratory examination (principal); I10 Essential (primary) hypertension; R94.39 Abnormal result of other cardiovascular function study
CPT/HCPCS: 36415; 80051; 82565; 84520; 85027

== ENCOUNTER → 2018-06-14 | Day surgery (SDC) | payer BC ==
[2018-06-12 12:07] VITALS: BMI 56.5
[~2018-06-14] MED LIST changes: +ALPRAZolam 0.25 MG TAB PO PRN; +ASPIRIN 325 MG TAB PO STA; +HEPARIN SODIUM 1,000 UN/ML (10ML VL) IV ONE; +HEPARIN SODIUM 1,000 UN/ML (10ML VL) ONE; +IOPAMIDOL-370 150ML BTL INJ ONE; -LACTATED RINGERS 1,000 ML IV SCH; -LIDOCAINE 1% 20 ML VIAL (10MG/ML) FOR IV START INTRADERMA PRN; +LIDOCAINE 1% INJ 10MG/ML (20 ML MDV) ONE; +LIDOCAINE 1% INJ 10MG/ML (20 ML MDV) SQ ONE; +MIDAZOLAM 2 MG/2 ML VIAL IV ONE; +RX INFO: IV CONTRAST WAS GIVEN 1 EACH MISC MISCELLANE PRN; +SODIUM CHLORIDE 0.9% 1,000 ML IV SCH; +SODIUM CHLORIDE 0.9% 1,000 ML in EMPTY BAG 1 BAG IV ONE; +VERAPAMIL 2.5 MG/ML 2 ML AMP ONE; +VERAPAMIL SYRINGE (5 MG/10 ML) INTRAARTER ONE; +fentaNYL (PF) 50 MCG/ML 2 ML AMP IV ONE; +fentaNYL (PF) 50 MCG/ML 2 ML AMP ONE
[2018-06-14 09:19] VITALS: RESP 18; TEMP 98
--- NOTE | 2018-06-14 11:03 | P.CARDCATH ---
Date of Procedure: 06/14/18 Preoperative Diagnosis: Positive stress test, preop clearance with multiple risk factors. Postoperative Diagnosis: Normal coronary arteries. Normal filling pressures of the left ventricle Procedure(s) Performed: Left heart catheterization without left ventriculography Description of Procedure: HISTORY: This is a 57-year-old female with history of hypertension and family history of ischemic heart disease who was referred for preop clearance for upcoming bariatric surgery. Patient had a stress echocardiogram in the recent past which was suggestive of possible ischemia. Patient was advised a the to have nuclear stress test or cardiac catheterization for definitive diagnosis. Patient preferred to have cardiac catheterization. CONSENT:I have discussed the risks, benefits and alternative therapies for the above-mentioned procedure and for both sedation/analgesia as well as necessary blood product administration, if indicated, as they pertain to this patient. The patient has indicated understanding and acceptance of the risks and procedures discussed. PROCEDURE: Patient was brought to the lab in a fasting state. Patient was given some IV sedation. The right groin is infiltrated with lidocaine and right femo ral artery was entered using Seldinger technique. A 6-Bengali catheter was left in place and selective coronary arteriography and left ventriculography was performed. Patient tolerated the procedure well. Femoral angiogram was performed and Angio-Seal was applied for hemostasis. No immediate complications were noted and patient was transferred to [facility] in a stable condition Conscious Sedation: Versed 1mg Fentanyl 50 g Duration 20 minutes HEMODYNAMICS: The aortic pressure is about 120/70. Left ventricle end-diastolic pressure is about 8 to 10. SELECTIVE CORONARY ARTERIOGRAPHY: LEFT MAIN: Normal length and free of occlusive disease THE LEFT ANTERIOR DESCENDING CORONARY ARTERY:. Moderate caliber vessel giving rise to small septal and diagonal branches. The LAD and branches are free of occlusive disease THE LEFT CIRCUMFLEX AND IS CORONARY ARTERY:. Nondominant vessel giving rise to 2 OM branches. Relatively small in caliber. Free of any occlusive disease. Gives rise to 2 OM branches THE RIGHT CORONARY ARTERY:. This is a dominant vessel giving rise to PDA and PLV. Free of any occlusive disease LEFT VENTRICULOGRAPHY:. Not performed FINAL IMPRESSION:, Normal coronary arteries. Normal left ventricular filling pressure PLAN: Maximum medical therapy and this factor modification. Patient is being cleared for pediatric surgery PROGNOSIS: Fair
[2018-06-14 12:04] VITALS: BP 158/71; PULSE 87
== END | disposition home or self-care (01) ==
LOC: CATHCVL 08:49
PROVIDERS: ATTEND Internal Medicine Cardiovascular Disease
DX: I10 Essential (primary) hypertension (principal); R94.39 Abnormal result of other cardiovascular function study; E66.9 Obesity, unspecified; G47.30 Sleep apnea, unspecified; Z87.891 Personal history of nicotine dependence; Z99.89 Dependence on other enabling machines and devices; Z79.899 Other long term (current) drug therapy; Z79.51 Long term (current) use of inhaled steroids; Z82.49 Family history of ischemic heart disease and other diseases of the circulatory system; Z88.2 Allergy status to sulfonamides; Z68.43 Body mass index [BMI] 50.0-59.9, adult
CPT/HCPCS: 93458; C1769; C1894; J2250; J2001; J3010; J1644; Q9967

== ENCOUNTER → 2018-07-25 | Outpatient (CLI) | payer BC ==
[2018-07-25 17:07] VITALS: BP 118/59; PULSE 88; RESP 16; TEMP 98.4; BMI 56.8
--- NOTE | 2018-07-25 18:06 | P.PN ---
Subjective Progress Note Date: 07/25/18 HPI: She comes in with problems with severe allergic reaction. She has severe seasonal allergies. She comes in with 20+ pound from her steroids ABDOMEN: unremarkable LABS: All labs reviewed EGD: reviewed ASSESSMENT: 1. Morbid obesity PLAN: 1. Re-check iron prior to surgery 2. Taking Vitamin D 3. Will need strict dietary evaluation for recent weight gain. 4. Continue with sleep apnea. 5. MyFitness Pal 6. Consent for sleeve Objective - Vital Signs Vital signs: Vital Signs Temp 98.4 F 07/25/18 17:04 Pulse 88 07/25/18 17:04 Resp 16 07/25/18 17:04 BP 118/59 07/25/18 17:04 Pulse Ox Intake & Output 07/24/18 07/25/18 07/25/18 18:59 06:59 18:59 Weight 159.721 kg
== END | disposition home or self-care (01) ==
LOC: BARWHC3 16:02
PROVIDERS: ATTEND Surgery Plastic and Reconstructive Surgery
DX: E66.01 Morbid (severe) obesity due to excess calories (principal); Z68.43 Body mass index [BMI] 50.0-59.9, adult
CPT/HCPCS: 99211

== ENCOUNTER → 2018-07-27 | Outpatient (CLI) | payer BC ==
[2018-07-27 17:23] LABS: ALT 41 U/L (9-52); AST 37 U/L (14-36); Albumin 4.6 g/dL (3.5-5.0); Alkaline Phosphatase 99 U/L (38-126); Anion Gap 7 mmol/L; Basophils % (A) 0 %; Blood Urea Nitrogen 20 mg/dL (7-17); Calcium 9.8 mg/dL (8.4-10.2); Carbon Dioxide 28 mmol/L (22-30); Chloride 107 mmol/L (98-107); Eosinophils # (A) 0.1 k/uL (0-0.7); Eosinophils % (A) 0 %; Glucose 97 mg/dL (74-99); HCT 41.1 % (34.0-46.0); HGB 12.8 gm/dL (11.4-16.0); Lymphocytes # (A) 1.5 k/uL (1.0-4.8); Lymphocytes % (A) 11 %; MCH 27.5 pg (25.0-35.0); MCHC 31.1 g/dL (31.0-37.0); MCV 88.3 fL (80.0-100.0); Mean Platelet Volume 6.9; Monocytes # (A) 0.6 k/uL (0-1.0); Monocytes % (A) 4 %; Neutrophils # (A) 10.6 k/uL (1.3-7.7); Neutrophils % (A) 83 %; Platelet Count 282 k/uL (150-450); Potassium 4.8 mmol/L (3.5-5.1); RBC 4.66 m/uL (3.80-5.40); RDW 15.6 % (11.5-15.5); Sodium 142 mmol/L (137-145); Total Bilirubin 0.4 mg/dL (0.2-1.3); Total Protein 7.2 g/dL (6.3-8.2); WBC 12.8 k/uL (3.8-10.6)
== END | disposition home or self-care (01) ==
LOC: LABPAT 16:35
PROVIDERS: ATTEND Surgery Plastic and Reconstructive Surgery
DX: Z01.812 Encounter for preprocedural laboratory examination (principal)
CPT/HCPCS: 36415; 80053; 85025

== ENCOUNTER → 2018-08-06 | Outpatient (CLI) | payer BC ==
[2018-08-06 09:39] VITALS: BMI 56.4
== END | disposition home or self-care (01) ==
LOC: BARWHC3 08:45
PROVIDERS: ATTEND Surgery Plastic and Reconstructive Surgery
DX: E66.01 Morbid (severe) obesity due to excess calories (principal); Z71.3 Dietary counseling and surveillance; Z68.43 Body mass index [BMI] 50.0-59.9, adult
CPT/HCPCS: 97804

== ENCOUNTER → 2018-08-08 | Outpatient (CLI) | payer BC ==
--- NOTE | 2018-08-09 07:23 | XR ---
EXAMINATION TYPE: XR chest 2V DATE OF EXAM: 08/08/2018 COMPARISON: 05/30/2017 HISTORY: Chest pain TECHNIQUE: Frontal and lateral views of the chest are obtained. FINDINGS: There is no focal air space opacity, pleural effusion, or pneumothorax seen. Minimal chron ic left basilar atelectasis is suspected near the left costophrenic angle. The cardiac silhouette siz e is within normal limits. Mild multilevel degenerative changes of the spine are seen. The osseous s tructures are intact. IMPRESSION: Minimal chronic left basilar atelectasis near the left costophrenic angle, no acute card iopulmonary process
== END ==
LOC: LABWHC1 16:26
PROVIDERS: ATTEND Family Medicine
DX: Z01.818 Encounter for other preprocedural examination (principal); J45.909 Unspecified asthma, uncomplicated
CPT/HCPCS: 71046

== ENCOUNTER 2018-08-20 10:58 | Inpatient (IN) | payer BC ==
--- NOTE | 2018-08-19 20:40 | P.GSHP ---
History of Present Illness H&P Date: 08/20/18 DATE OF SERVICE: 08/20/2018 CHIEF COMPLAINT: Morbid obesity HISTORY OF PRESENT ILLNESS: Wendie Bland is a 58-year-old female who comes with lifelong morbid obesity. She is looking into a sleeve gastrectomy. She has tried medical weight loss clinic, [employer], and apps for tracking her food. Most of her weight loss was on Atkins where she lost 70-lbs. Her highest weight is 339 pounds. She has hypertensive heart disease and osteoarthritis. At height of 5 feet 6.5 inches, her ideal body weight is 154 pounds. She comes in 339 pounds. Her body mass index is 54.9. She is 185 pounds overweight. PAST MEDICAL HISTORY: 1. Morbid obesity due to excess calories 2. Body mass index of 54.9 3. Osteoarthritis of the knees. 4. Osteoarthritis of the lower back. 5. Hypertensive heart disease. 7. Asthma 8. Chronic obstructive pulmonary disorder 9. Depressive disorder 10. Postoperative nausea and vomiting 11. Anxiety PAST SURGICAL HISTORY: 1. Bilateral total knee replacement HOME MEDICATIONS: ALLERGIES: Home Medications Medication Instructions Recorded Confirmed Type Furosemide [Lasix] 20 mg PO DAILY 08/18/15 03/08/18 History Montelukast [Singulair] 10 mg PO HS 08/18/15 03/08/18 History Multivitamin with Iron 1 tab PO DAILY 08/18/15 03/08/18 History [Multivitamins with Iron] Escitalopram [Lexapro] 20 mg PO DAILY 08/31/16 03/08/18 History Benralizumab [Fasenra] 30 mg SQ DIRECTED 03/08/18 03/08/18 History Calcium Carbonate/Vitamin D3 1,200 mg PO BID 03/08/18 03/08/18 History [Calcium 600-Vit D3 500 Softgel] Carvedilol [Coreg] 6.25 mg PO BID 03/08/18 03/08/18 History Glucosam/Fidel-Msm1/C/Michael/Bosw 1,200 mg PO BID 03/08/18 03/08/18 History [Glucosamine-Chondroitin Tablet] Lisinopril [Prinivil] 10 mg PO DAILY 03/08/18 03/08/18 History Mometasone/Formoterol [Dulera 200 1 puff INHALATION BID 03/08/18 03/08/18 History Mcg/5 Mcg Inhaler] Potassium 99 mg PO DAILY 03/08/18 03/08/18 History Tiotropium [place] [Spiriva] 1 cap INHALATION DAILY 03/08/18 03/08/18 History Vit C/E/Zn/Coppr/Lutein/Zeaxan 1 each PO BID 03/08/18 03/08/18 History [Preservision Areds 2 Softgel] Vitamin B Complex 1 each PO BID 03/08/18 03/08/18 History Allergies Allergy/AdvReac Type Severity Reaction Status Date / Time Sulfa (Sulfonamide Allergy Dyspnea Verified 03/08/18 11:13 Antibiotics) SOCIAL HISTORY: Past tobacco use. FAMILY HISTORY: No family history of ulcerative colitis disease or Crohn's disease. Family history of morbid obesity. No lupus in the family. No reports of stomach or esophageal cancer. REVIEW OF ORGAN SYSTEMS: CONSTITUTIONAL: At height of 5 feet 6.5 inches, her ideal body weight is 154 pounds. At height of 5 feet 6.5 inches, her ideal body weight is 154 pounds. She comes in 339 pounds. Her body mass index is 54.9. She is 185 pounds overweight. HEENT: Denies any active troubles with vision or hearing. No troubles with swallowing. ENDOCRINE: No diabetes. No hypothyroidism. CARDIOVASCULAR: No reports of palpitations or heart attacks or chest pain. RESPIRATORY: Has daytime somnolence. Has asthma. GI: Denies any bright red blood per rectum. No diarrhea. Has constipation. Has gastroesophageal reflux disease. MUSCULOSKELETAL: Has lower back pain and joint pain. Has osteoarthritis of the knees. NEURO: No headaches. No seizure disorders. PSYCH: Has depression. No suicidal ideation. RHEUMATOLOGIC: No lupus. No rheumatoid arthritis. HEMATOLOGIC: Denies any abnormal bleeding or bruising. No personal history of DVTs. SKIN: No rash. No skin cancer. PHYSICAL EXAM: VITAL SIGNS: Height 5 foot 6 inches, weight 339 pounds. BMI 54.9 GENERAL: Well-developed in no acute distress. HEENT: No scleral icterus. Extraocular movements grossly intact. Hears conversational speech. No nasal drainage. NECK: Supple without lymphadenopathy. CHEST: Nonlabored respirations with equal bilateral excursions. CARDIOVASCULAR: Regular rate and regular rhythm. Distal 2+ pulses. ABDOMEN: Obese, soft, nontender, nondistended. MUSCULOSKELETAL: No clubbing, cyanosis. Gross strength 5/5 distal lower extremities. NEURO: No focal or lateralizing signs. Cranial nerves 2 through 12 grossly within normal limits. PSYCH: Appropriate affect. Alert and oriented to person, place and time. SKIN: Good skin turgor. Well perfused. ASSESSMENT: 1. Morbid obesity due to excess calories 2. Body mass index of 54.9 3. Osteoarthritis of the knees. 4. Osteoarthritis of the lower back. 5. Hypertensive heart disease. 7. Asthma 8. Chronic obstructive pulmonary disorder 9. Depressive disorder 10. Postoperative nausea and vomiting 11. Anxiety PLAN: 1. Bariatric options between a sleeve, band and a Eugenia-en-Y gastric bypass were reviewed in detail. The patient elected for a sleeve gastrectomy. Robotic assisted approach described. 2. The [place] [facility] Data was also reviewed with benefits and risks as described. 3. An 8 page second-generation bariatric consent form was reviewed in detail including potential of bleeding, infection, leaks, adequate weight loss, nutritional deficiencies which the patient demonstrated understanding of the risks. 4. A 2 week high-protein low caloric 800 kcal diet described to address hepatomegaly. 5. Preoperative labs including complete metabolic panel and CBC with type and screen recommended. 6. DVT prophylaxis per [place] [facility]. 7. Antibiotic prophylaxis. 8. Inpatient hospitalization anticipated for more than 2 nights. 9. All questions and concerns were addressed with the patient. Past Medical History Past Medical History: Asthma, Hypertension History of Any Multi-Drug Resistant Organisms: None Reported Past Surgical History: Hernia Repair, Joint Replacement, Orthopedic Surgery Additional Past Surgical History / Comment(s): bilateral total knee replacement, right finger digits 2,3,5 left digits 2,3 arthiritis removed, bilateral bone fusion to thumbs , EGD Past Anesthesia/Blood Transfusion Reactions: Postoperative Nausea & Vomiting (PONV) Additional Past Anesthesia/Blood Transfusion Reaction / Comment(s): antiemetic administered and "it helped alot' Past Psychological History: Anxiety Smoking Status: Former smoker Past Alcohol Use History: Rare Additional Past Alcohol Use History / Comment(s): smoked from age 18 to 34 Past Drug Use History: None Reported - Past Family History Mother Family Medical History: No Reported History Medications and Allergies Home Medications Medication Instructions Recorded Confirmed Type Benralizumab [Fasenra] 30 mg SQ Q45D 08/06/18 08/13/18 History Calcium Carbonate/Vitamin D3 1,200 mg PO BID 08/06/18 08/13/18 History [Calcium 600-Vit D3 500 Softgel] Carvedilol [Coreg] 6.25 mg PO BID 08/06/18 08/13/18 History Escitalopram [Lexapro] 20 mg PO QAM 08/06/18 08/13/18 History Ferrous Sulfate [Iron (65 MG 325 mg PO DAILY 08/06/18 08/13/18 History Elemental)] Furosemide [Lasix] 20 mg PO DAILY 08/06/18 08/13/18 History Glucosam/Fidel-Msm1/C/Michael/Bosw 1,200 mg PO BID 08/06/18 08/13/18 History [Glucosamine-Chondroitin Tablet] Lisinopril [Prinivil] 10 mg PO QAM 08/06/18 08/13/18 History Mometasone/Formoterol [Dulera 200 2 puff INHALATION BID 08/06/18 08/13/18 History Mcg/5 Mcg Inhaler] Montelukast [Singulair] 10 mg PO HS 08/06/18 08/13/18 History Potassium 99 mg PO DAILY 08/06/18 08/13/18 History Tiotropium [place] [Spiriva] 1 cap INHALATION QAM 08/06/18 08/13/18 History Vit C/E/Zn/Coppr/Lutein/Zeaxan 1 each PO BID 08/06/18 08/13/18 History [Preservision Areds 2 Softgel] Allergies Allergy/AdvReac Type Severity Reaction Status Date / Time Sulfa (Sulfonamide Allergy Dyspnea Verified 08/13/18 15:50 Antibiotics)
[~2018-08-20 10:58] MED LIST changes: -ALPRAZolam 0.25 MG TAB PO PRN; -ASPIRIN 325 MG TAB PO STA; +DEXAMETHASONE SOD PHOSPHATE 10 MG/ML 1 ML VIAL IV ONE; -HEPARIN SODIUM 1,000 UN/ML (10ML VL) IV ONE; -HEPARIN SODIUM 1,000 UN/ML (10ML VL) ONE; -IOPAMIDOL-370 150ML BTL INJ ONE; -LIDOCAINE 1% INJ 10MG/ML (20 ML MDV) ONE; -LIDOCAINE 1% INJ 10MG/ML (20 ML MDV) SQ ONE; -MIDAZOLAM 2 MG/2 ML VIAL IV ONE; +MIDAZOLAM 2 MG/2 ML VIAL IV PRN; +ONDANSETRON 4 MG/2 ML VIAL IVP ONE; -RX INFO: IV CONTRAST WAS GIVEN 1 EACH MISC MISCELLANE PRN; +SCOPOLAMINE 1.5MG/72HR PATCH TRANSDERM ONE; -SODIUM CHLORIDE 0.9% 1,000 ML IV SCH; -SODIUM CHLORIDE 0.9% 1,000 ML in EMPTY BAG 1 BAG IV ONE; -VERAPAMIL 2.5 MG/ML 2 ML AMP ONE; -VERAPAMIL SYRINGE (5 MG/10 ML) INTRAARTER ONE; +ceFAZolin 3 GM in SODIUM CHLORIDE 0.9% 100 ML IVPB ONE; -fentaNYL (PF) 50 MCG/ML 2 ML AMP IV ONE; -fentaNYL (PF) 50 MCG/ML 2 ML AMP ONE
[2018-08-20] MEDS ORDERED: CHLORHEXIDINE GLUCONATE 15 ML CUP MUCOUS MEM ONE (11:15)
[2018-08-20] MEDS ORDERED: ENOXAPARIN 40 MG/0.4 ML SYRINGE SQ STA (11:15)
[2018-08-20] MEDS ORDERED: PANTOPRAZOLE 40 MG/10 ML VIAL IV STA (11:15)
[2018-08-20] MEDS: LACTATED RINGERS 1,000 ML IV SCH (11:50)
[2018-08-20] MEDS ORDERED: LIDOCAINE 1% 20 ML VIAL (10MG/ML) FOR IV START INTRADERMA ONE (11:50)
[2018-08-20 11:59] LABS: Basophils % (A) 0 %; Eosinophils % (A) 0 %; HGB 12.2 gm/dL (11.4-16.0); Lymphocytes # (A) 1.2 k/uL (1.0-4.8); Lymphocytes % (A) 22 %; MCH 28.2 pg (25.0-35.0); MCHC 32.1 g/dL (31.0-37.0); MCV 87.9 fL (80.0-100.0); Mean Platelet Volume 6.6; Monocytes # (A) 0.3 k/uL (0-1.0); Monocytes % (A) 5 %; Neutrophils # (A) 3.8 k/uL (1.3-7.7); Neutrophils % (A) 71 %; Platelet Count 213 k/uL (150-450); RBC 4.33 m/uL (3.80-5.40); RDW 15.1 % (11.5-15.5); WBC 5.3 k/uL (3.8-10.6)
[2018-08-20] MEDS ORDERED: ONDANSETRON 4 MG/2 ML VIAL ONE (12:50)
[2018-08-20] MEDS ORDERED: GLYCOPYRROLATE 0.2 MG/ML 2 ML VIAL ONE (12:50)
[2018-08-20] MEDS ORDERED: LIDOCAINE 1% INJ 10MG/ML (20 ML MDV) ONE (12:50)
[2018-08-20] MEDS ORDERED: ePHEDrine SULFATE/0.9% NACL/PF 50 MG/5 ML SYRINGE IV ONE (12:50)
[2018-08-20] MEDS ORDERED: MIDAZOLAM 2 MG/2 ML VIAL ONE (12:50)
[2018-08-20] MEDS ORDERED: NEOSTIGMINE 1 MG/ML 10 ML VIAL ONE (12:50)
[2018-08-20] MEDS ORDERED: fentaNYL (PF) 50 MCG/ML 2 ML AMP ONE (12:50)
[2018-08-20] MEDS ORDERED: ROCURONIUM BROMIDE 10 MG/ML 10 ML VIAL IV ONE (12:50)
[2018-08-20] MEDS ORDERED: PROPOFOL 10 MG/ML 20 ML VIAL IV ONE (12:50)
[2018-08-20] MEDS ORDERED: SUCCINYLCHOLINE CHLORIDE VIAL 200 MG/10 ML VIAL IV ONE (12:50)
[2018-08-20] MEDS ORDERED: BUPIVACAIN-EPI 0.5%-1:200,000 30 ML VIAL SQ ONE (13:30)
[2018-08-20] MEDS ORDERED: LACTATED RINGERS 1,000 ML IV ONE ×2 (13:30→15:02)
[2018-08-20] MEDS ORDERED: HYDROcodone/APAP 15 ML SOLUTION PO PRN (15:40)
[2018-08-20] MEDS ORDERED: diphenhydrAMINE 50 MG/ML 1 ML VIAL IVP PRN (15:40)
[2018-08-20] MEDS ORDERED: NALOXONE 0.4 MG/ML 1 ML VIAL IV PRN (15:40)
[2018-08-20] MEDS ORDERED: ACETAMINOPHEN IV (For NPO) 1,000 MG in EMPTY BAG 1 BAG IVPB ONE (15:40)
--- NOTE | 2018-08-20 15:40 | P.OP ---
Date of Procedure: 08/20/18 Description of Procedure: SURGEON: RAQUEL NGUYEN MD PREOPERATIVE DIAGNOSES: 1. Morbid obesity due to excess calories 2. Body mass index of 54.9 3. Osteoarthritis of the knees. 4. Osteoarthritis of the lower back. 5. Hypertensive heart disease. 7. Asthma 8. Chronic obstructive pulmonary disorder 9. Depressive disorder 10. Postoperative nausea and vomiting 11. Anxiety POSTOPERATIVE DIAGNOSES: 1. Morbid obesity due to excess calories 2. Body mass index of 54.9 3. Osteoarthritis of the knees. 4. Osteoarthritis of the lower back. 5. Hypertensive heart disease. 7. Asthma 8. Chronic obstructive pulmonary disorder 9. Depressive disorder 10. Postoperative nausea and vomiting 11. Anxiety 12. Severe hepatomegaly OPERATION: 1. Robotic assisted daVinci Xi laparoscopic sleeve gastrectomy with 40-Kazakh bougie, multiport. 2. Intraoperative esophagogastroduodenoscopy. ANESTHESIA: Gen. local anesthetic ESTIMATED BLOOD LOSS: 10 mL SPECIMENS REMOVED: Sleeve gastrectomy COMPLICATIONS: None. INDICATIONS: Wendie Bland is a 58-year-old female who comes with lifelong morbid obesity. She is looking into a sleeve gastrectomy. She has tried medical weight loss clinic, [employer], and apps for tracking her food. Most of her weight loss was on Atkins where she lost 70-lbs. Her highest weight is 339 pounds. She has hypertensive heart disease and osteoarthritis. At height of 5 feet 6.5 inches, her ideal body weight is 154 pounds. She comes in 339 pounds. Her body mass index is 54.9. She is 185 pounds overweight. All surgical options for morbid obesity had been described using the [place] [facility]ariat[facility] collaborative comorbidity resolution including complication risk score. A second-generation bariatric consent form was described in detail including the possibility of protein malnutrition, leaks, gastric stricture, venous thrombosis, gastroesophageal reflux disease, need for further surgery for which she demonstrated understanding. Benefits and risks of the procedure were described at length. Informed consent was obtained. DESCRIPTION: The patient was brought into the operating room theater. Preoperatively she had received Lovenox subcutaneously for DVT prophylaxis. Additionally she had Peridex oral solution as an oral decontaminant. After general induction, the abdomen was prepped and draped in standard sterile fashion. An Ioban draping was placed along the abdomen. A robotic da Nelly Xi system was prepped and primed. The xiphoid to umbilicus measured 25 cm. At 15 cm from the xiphoid, proposed port sites were marked with indelible marker along the anterior axillary line bilaterally, mid axillary line bilaterally with each ports were marked 10 to 15 cm from each other. The bricklayer's assistant port was marked along the left lateral abdominal wall. The robotic stapler port was marked for the right midclavicular line. A 5 mm 0 degrees laparoscopic trocar entry was performed along the left upper quadrant. The abdomen was insufflated to 15 mmHg pressure he tolerated well. Diagnostic laparoscopy demonstrated no injury to bowel, viscera, or mesentery. The liver surface was remarkable for severe hepatomegaly. No injury had occurred to the small bowel or viscera. Along the hiatus no evidence of large prominent hiatal hernia. A 8 mm port was placed along the right upper abdominal wall after exchanging the 5 mm port. A separate 8 mm port was placed along the left lateral abdominal wall. Please note that the ports were placed at least 20 cm away from the target anatomy. Care was taken to check each robotic arms were safely away from collision with the bed or the patient. At the epigastrium, a median sized Nhan liver retractor was placed under direct visualization with the Iron Aerospace Engineer placed under the right shoulder of the patient. Next, 12-mm robot stapler port was placed along the right upper quadrant. The camera 8-mm port was maintained along the epigastrium, The patient was repositioned in reverse Trendelenburg position at 16-degrees after lowering the bed. The robot was docked along the left side of the patient. Using a grasper for arm 4, a veseel sealer for arm 3, including grasper for arm 1, the robotic system was docked and primed as described. Instruments were interchanged by the bricklayer's assistant for stapler loads. The camera was placed at 30-degrees down. I had sat at the console. The pylorus was identified and 6 cm proximally along the greater curvature of the stomach, the short gastrics were mobilized upwards to the angle of His using a vessel sealer. At the gastric cardia, the severity of the hepatomegaly limited view of the superior pole of the stomach. Additional time and care was used to resect the upper pole of stomach from the sleeve. Multiple maneuvers were used to provide additional exposure. Next, the upper pole of the stomach was adherent to the left raj. The nursing egg crater placed a 40-Kazakh blunted bougie into the stomach. Robotic stapler green loads 60 mm x 1, followed by blue 60 mm x 5 loads were used to create the sleeve. Initial firing was across the antrum of the stomach towards the angle of His. The space from the angularis incisura of the sleeve was approximately 4 cm. I then went to the head of the bed to perform the intraoperative eso phagogastroduodenoscopy leak test. The upper pole of the stomach was bathed using normal saline solution. The scope was withdrawn with careful inspection along the staple line for which no leaks were found along the entire length. Additionally,the sleeve was completely hemostatic without any encroachment along the angularis incisura. Its topology was a soft "J". No stricture was encountered upon placement of the scope. The GI tract was desufflated. The patient tolerated this portion of the procedure well. The scope was completely withdrawn. The robot was undocked. I then rescrubbed into case, whereby the irrigation fluid was aspirated from the abdominal cavity. Tisseel fibrin sealant was placed along the entire staple length. Once dried the Nhan liver retractor was removed. Attention was now brought to removal of the specimen. The distal end of the sleeve gastrectomy specimen was brought out through the 12 mm port at the left upper quadrant. The specimen was gently removed en total. No contamination had occurred during this process. All instruments and pneumoperitoneum including irrigation fluid was removed from the abdominal cavity. The 12 mm port site was closed using 0-Vicryl and Adolfo Fernández and irrigated with diluted hydrogen peroxide. The final incisions were closed using subcuticular interrupted suture of 4-0 Monocryl. Exofin was applied to the skin once the skin had been cleansed. OptiFoam dressing was placed along the stomach extraction site. At the end of the procedure, needle, sponge, and instrument count was verified correct by the biosolids management technician. The patient was taken to the postanesthesia care unit in stable condition. She had tolerated the procedure well. Intraoperative films and findings were reviewed with the patient's family. FINDINGS: 1. Negative intraoperative esophagogastrojejunoscopy leak test. 2. Severe hepatomegaly without large hiatus hernia adding moderate complexity to the case. 3. Total of 8 staplers used including 8 - 60 mm green loads used to create the gastric sleeve. 4. Xiphoid to umbilicus of 25 cm. 5. Trocars placed 15 cm from xiphoid process 6. Sleeve gastrectomy 25.5 x 5 cm 7. Console time 76 minutes
[2018-08-20] MEDS ORDERED: PROMETHAZINE INJ 25 MG/ML 1 ML VIAL IVPB ONE (15:47)
[2018-08-20] MEDS: HYDROmorphone 0.5 MG/0.5 ML SYRINGE IVP PRN ×2 (16:04→16:09)
[2018-08-20] MEDS ORDERED: diphenhydrAMINE 50 MG/ML 1 ML VIAL IVP ONE (16:17)
[2018-08-20] MEDS: ALBUTEROL NEBULIZED 2.5 MG/3 ML INHALATION SCH ×2 (16:23→20:34)
[2018-08-20] MEDS ORDERED: SODIUM FERRIC GLUCONAT-SUCROSE 125 MG in SODIUM CHLORIDE 0.9% 100 ML IVPB ONE (17:00)
[2018-08-20] MEDS: ONDANSETRON 4 MG/2 ML VIAL IVP SCH (18:25)
[2018-08-20] MEDS: HYOSCYAMINE ORAL DROPS 1.875 MG/15 ML BOTTLE PO SCH (18:46)
[2018-08-20] MEDS: SIMETHICONE 40 MG/0.6 ML DROPS 2,000 MG/30 ML BOTTLE PO SCH (18:46)
[2018-08-20] MEDS: MAGNESIUM SULFATE-D5W PMX 1 GM in DEXTROSE/WATER 1 100ML.BAG IVPB SCH ×2 (19:40→21:37)
[2018-08-20] MEDS: SYMBICORT 160-4.5 MCG INHALER INHALATION SCH (20:43)
[2018-08-20] MEDS ORDERED: MONTELUKAST 10 MG TAB PO SCH (21:00)
[2018-08-20] MEDS ORDERED: ceFAZolin 3 GM in SODIUM CHLORIDE 0.9% 100 ML IVPB SCH (21:00)
[2018-08-20] MEDS: HYDROmorphone 1 MG/ML 1 ML SYRINGE IVP PRN (21:37)
[2018-08-20] MEDS: CARVEDILOL 6.25 MG TAB PO SCH (21:38)
[2018-08-20] MEDS ORDERED: DEXAMETHASONE SOD PHOSPHATE 10 MG/ML 1 ML VIAL IV STA (22:20)
[2018-08-21] MEDS: ONDANSETRON 4 MG/2 ML VIAL IVP SCH ×4 (00:09→11:35)
[2018-08-21] MEDS: HYOSCYAMINE ORAL DROPS 1.875 MG/15 ML BOTTLE PO SCH ×3 (00:09→11:35)
[2018-08-21] MEDS: SIMETHICONE 40 MG/0.6 ML DROPS 2,000 MG/30 ML BOTTLE PO SCH ×3 (00:09→11:35)
[2018-08-21] MEDS: HYDROmorphone 1 MG/ML 1 ML SYRINGE IVP PRN ×3 (00:18→07:44)
[2018-08-21] MEDS: METOCLOPRAMIDE 5 MG/ML 2 ML VIAL IVP SCH ×3 (00:19→11:35)
[2018-08-21] MEDS: LACTATED RINGERS 1,000 ML IV SCH (06:04)
[2018-08-21] MEDS: CARVEDILOL 6.25 MG TAB PO SCH (07:44)
[2018-08-21] MEDS: SYMBICORT 160-4.5 MCG INHALER INHALATION SCH (07:52)
[2018-08-21] MEDS: IPRATROPIUM-ALBUTEROL 3 ML NEB INHALATION SCH ×3 (07:52→16:09)
[2018-08-21 07:58] VITALS: RESP 18; TEMP 98.3
[2018-08-21] MEDS ORDERED: IPRATROPIUM 0.5 MG/2.5 ML NEBU INHALATION SCH (08:00)
[2018-08-21 08:37] LABS: Basophils % (A) 0 %; Eosinophils # (A) 0.2 k/uL (0-0.7); Eosinophils % (A) 2 %; HCT 35.8 % (34.0-46.0); HGB 11.8 gm/dL (11.4-16.0); Hypochromasia Slight; Lymphocytes # (A) 0.5 k/uL (1.0-4.8); Lymphocytes % (A) 5 %; MCH 29.1 pg (25.0-35.0); MCHC 32.9 g/dL (31.0-37.0); MCV 88.6 fL (80.0-100.0); Mean Platelet Volume 8.2; Monocytes % (A) 9 %; Neutrophils # (A) 9.4 k/uL (1.3-7.7); Neutrophils % (A) 84 %; Platelet Count 248 k/uL (150-450); RBC 4.04 m/uL (3.80-5.40); RDW 15.2 % (11.5-15.5); WBC 11.2 k/uL (3.8-10.6)
[2018-08-21] MEDS ORDERED: LISINOPRIL 10 MG TAB PO SCH (09:00)
[2018-08-21] MEDS ORDERED: SODIUM FERRIC GLUCONAT-SUCROSE 125 MG in SODIUM CHLORIDE 0.9% 100 ML IVPB SCH (09:00)
[2018-08-21] MEDS ORDERED: LORATADINE 10 MG TAB PO SCH (09:00)
[2018-08-21] MEDS ORDERED: ENOXAPARIN 40 MG/0.4 ML SYRINGE SQ SCH (09:00)
--- NOTE | 2018-08-21 09:26 | P.PN ---
Subjective Progress Note Date: 08/21/18 She is doing well. Her nausea is resolved. Her pain is improved. Discharge instructions described. Objective - Vital Signs Vital signs: Vital Signs Temp 98.3 F 08/21/18 07:38 Pulse 84 08/21/18 08:08 Resp 18 08/21/18 07:38 BP 126/63 08/21/18 07:38 Pulse Ox 93 L 08/21/18 07:58 Intake & Output 08/20/18 08/21/18 08/21/18 18:59 06:59 18:59 Intake Total 2500 1760 Output Total 10 Balance 2490 1760 Intake: IV 2500 Intake, IV Titration 1760 Amount ACETAMINOPHEN IV (For NPO 400 ) 1,000 mg In Empty Bag 1 bag @ 400 mls/hr IVPB ONCE ONE Rx#:[id number] Lactated Ringers 1,000 ml 1060 @ 20 mls/hr IV .Q24H [facility] Rx#:[id number] Magnesium Sulfate-D5w Pmx 200 1 gm In Dextrose/Water 1 100ml.bag @ 100 mls/hr IVPB Q1H [facility] Rx#: [id number] Sodium Ferric Gluconat- 100 Sucrose 125 mg In Sodium Chloride 0.9% 100 ml @ 100 mls/hr IVPB ONCE ONE Rx#:[id number] Output: Estimated Blood Loss 10 Other: Voiding Method Toilet # Voids 3 - Labs CBC & Chem 7: 08/21/18 07:51 Labs: Abnormal Lab Results - Last 24 Hours (Table) 08/21/18 Range/Units 07:51 WBC 11.2 H (3.8-10.6) k/uL Neutrophils # 9.4 H (1.3-7.7) k/uL Lymphocytes # 0.5 L (1.0-4.8) k/uL
[2018-08-21 11:58] LABS: African American GFR (CKD) >90 (>60 ml/min/1.73 sqM); Anion Gap 5 mmol/L; Blood Urea Nitrogen 11 mg/dL (7-17); Calcium 8.9 mg/dL (8.4-10.2); Carbon Dioxide 28 mmol/L (22-30); Chloride 108 mmol/L (98-107); Magnesium 2.5 mg/dL (1.6-2.3); Phosphorus 3.4 mg/dL (2.5-4.5); Potassium 4.3 mmol/L (3.5-5.1); Sodium 141 mmol/L (137-145)
[2018-08-21 14:00] VITALS: BMI 54.8
--- NOTE | 2018-08-21 14:28 | FL ---
EXAMINATION TYPE: FL UGI DATE OF EXAM: 08/21/2018 LIMITED UGI: CLINICAL HISTORY: Morbid Obesity, gastric sleeve surgery yesterday. TECHNIQUE: Limited esophagram is performed utilizing 40 oz of Isovue-370. A total of 29 seconds of f luoroscopic time was utilized during procedure. 18 spot images are saved to PACS. COMPARISON: None. FINDINGS: The patient swallowed contrast without difficulty or delay. Esophageal peristalsis and mo tility are within normal limits. There is good flow of contrast along the diaphragmatic hiatus into proximal gastric sleeve through proximal anastomosis . There is mild delay in flow from distal sleeve through the distal anastomosis into pylorus and duodenal sweep. Patient remains asymptomatic. There is no evidence of contrast extravasation to suggest leak. IMPRESSION: No evidence of leak or significant obstruction status post recent gastric sleeve surgery yesterday.
[2018-08-21 14:50] VITALS: BP 95/57; PULSE 85
--- NOTE | 2018-08-21 19:48 | P.DS ---
Providers Date of admission: 08/20/18 10:58 Expected date of discharge: 08/21/18 Attending physician: Nanci Jenkins Primary care physician: Maritza Villeda Plan - Discharge Summary Discharge Rx Participant: Yes New Discharge Prescriptions: New Bisacodyl [Dulcolax] 5 mg PO DAILY PRN #10 tablet.dr NUGENT Reason: Constipation Simethicone 40 mg/0.6 ml Drops [Mylicon Drops] 40 mg PO PCHS PRN #30 ml PRN Reason: Gas Ondansetron Odt [Zofran Odt] 4 mg PO Q8HR PRN #9 tab PRN Reason: Nausea Omeprazole 40 mg PO DAILY #30 capsule. HYDROcodone/APAP [[place] Elixir 7.5-325Mg/15Ml] 15 ml PO Q6H PRN #180 solution PRN Reason: Pain Continue Escitalopram [Lexapro] 20 mg PO QAM Carvedilol [Coreg] 6.25 mg PO BID Montelukast [Singulair] 10 mg PO HS Mometasone/Formoterol [Dulera 200 Mcg/5 Mcg Inhaler] 2 puff INHALATION RT-BID Lisinopril [Prinivil] 10 mg PO QAM Tiotropium [place] [Spiriva] 1 puff INHALATION RT-DAILY Loratadine [Claritin] 10 mg PO DAILY Discontinued Calcium Carbonate/Vitamin D3 [Calcium 600-Vit D3 500 Softgel] 1,200 mg PO BID Ferrous Sulfate [Iron (65 MG Elemental)] 325 mg PO DAILY Glucosam/Fidel-Msm1/C/Michael/Bosw [Glucosamine-Chondroitin Tablet] 1,200 mg PO BID Furosemide [Lasix] 20 mg PO DAILY Vit C/E/Zn/Coppr/Lutein/Zeaxan [Preservision Areds 2 Softgel] 1 cap PO BID Potassium 99 mg PO DAILY Benralizumab [Fasenra] 30 mg SQ Q45D Discharge Medication List Carvedilol [Coreg] 6.25 mg PO BID 08/06/18 [History] Escitalopram [Lexapro] 20 mg PO QAM 08/06/18 [History] Lisinopril [Prinivil] 10 mg PO QAM 08/06/18 [History] Mometasone/Formoterol [Dulera 200 Mcg/5 Mcg Inhaler] 2 puff INHALATION RT-BID 08/06/18 [History] Montelukast [Singulair] 10 mg PO HS 08/06/18 [History] Tiotropium [place] [Spiriva] 1 puff INHALATION RT-DAILY 08/06/18 [History] Bisacodyl [Dulcolax] 5 mg PO DAILY PRN #10 tablet. 08/20/18 [Rx] HYDROcodone/APAP [[place] Elixir 7.5-325Mg/15Ml] 15 ml PO Q6H PRN #180 solution 08/20/18 [Rx] Loratadine [Claritin] 10 mg PO DAILY 08/20/18 [History] Omeprazole 40 mg PO DAILY #30 capsule. 08/20/18 [Rx] Ondansetron Odt [Zofran Odt] 4 mg PO Q8HR PRN #9 tab 08/20/18 [Rx] Simethicone 40 mg/0.6 ml Drops [Mylicon Drops] 40 mg PO PCHS PRN #30 ml 08/20/18 [Rx] Follow up Appointment(s)/Referral(s): Maritza Villeda MD [Primary Care Provider] - 08/28/18 1:00 pm [facility],. [NON-STAFF] - 08/24/18 10:00 am (Nurse visit) Patient Instructions/Handouts: Nutrition after Bariatric Surgery (DC), Laparoscopic Sleeve Gastrectomy (DC) Activity/Diet/Wound Care/Special Instructions: NO lifting over 4 pounds in 4 weeks, September 19. May shower. No bathtub soaks. Dressings to be removed by your doctor in the office. Drink 64 oz of fluid daily. Start protein shakes on . Notify bariatric center for temp over 101.0, increased pain, drainage from incisions. No straws or carbonated beverages. Liquid diet only. Sugar content should be less than 6 g to avoid dumping syndrome. Take MOM for constipation. CRUSH, OPEN, OR CUT TABLETS LARGER THAN A SIZE OF A TIC TAC Re-schedule any procedures for October 2018 Discharge Disposition: HOME SELF-CARE
[2018-08-22] MEDS ORDERED: BISACODYL 5 MG TABLET.DR PO PRN (08:00)
== END 2018-08-21 16:13 | disposition home or self-care (01) | DRG 621 ==
LOC: 2ORMAIN 10:58 → 4SSUR 15:18
PROVIDERS: ADMIT Surgery Plastic and Reconstructive Surgery; ATTEND Surgery Plastic and Reconstructive Surgery
PROC: 8E0W4CZ Robotic Assisted Procedure of Trunk Region, Percutaneous Endoscopic Approach (ICD-10-PCS; 2018-08-20)
PROC: 0DJ08ZZ Inspection of Upper Intestinal Tract, Via Natural or Artificial Opening Endoscopic (ICD-10-PCS; 2018-08-20)
PROC: 0DB64Z3 Excision of Stomach, Percutaneous Endoscopic Approach, Vertical (ICD-10-PCS; principal; 2018-08-20 12:40)
DX: E66.01 Morbid (severe) obesity due to excess calories (principal); Z71.3 Dietary counseling and surveillance; Z68.43 Body mass index [BMI] 50.0-59.9, adult; I11.9 Hypertensive heart disease without heart failure; R16.0 Hepatomegaly, not elsewhere classified; M19.90 Unspecified osteoarthritis, unspecified site; F32.9 Major depressive disorder, single episode, unspecified; F41.9 Anxiety disorder, unspecified; M47.9 Spondylosis, unspecified; J44.9 Chronic obstructive pulmonary disease, unspecified; Z79.51 Long term (current) use of inhaled steroids; Z79.899 Other long term (current) drug therapy; Z96.653 Presence of artificial knee joint, bilateral; Z87.891 Personal history of nicotine dependence; Z88.2 Allergy status to sulfonamides
CPT/HCPCS: 36415; 74240; 80051; 82310; 82565; 83735; 84100; 84520; 85025; 86850; 86900; 86901; 88307; 94640; 94760; 94762

== ENCOUNTER → 2018-08-24 | Outpatient (CLI) | payer BC | END | disposition home or self-care (01) | CPT/HCPCS: 99211 ==

== ENCOUNTER → 2018-08-29 | Outpatient (CLI) | payer BC ==
[2018-08-29 11:50] VITALS: BP 132/68; PULSE 72; TEMP 97.2; BMI 51.7
--- NOTE | 2018-08-30 10:02 | P.PN ---
Subjective Progress Note Date: 08/29/18 "I feel fantastic.". Moderate weight loss over 20 pounds in 1 month. No fevers or chills. No nausea and vomiting. Follow-up in 2 weeks. Objective - Vital Signs Vital signs: Vital Signs Temp 97.2 F L 08/29/18 11:47 Pulse 72 08/29/18 11:47 Resp BP 132/68 08/29/18 11:47 Pulse Ox Intake & Output 08/29/18 08/30/18 08/30/18 18:59 06:59 18:59 Weight 145.603 kg
== END | disposition home or self-care (01) ==
LOC: BARWHC3 11:06
PROVIDERS: ATTEND Surgery Plastic and Reconstructive Surgery
DX: E66.01 Morbid (severe) obesity due to excess calories (principal); Z71.3 Dietary counseling and surveillance; Z68.43 Body mass index [BMI] 50.0-59.9, adult
CPT/HCPCS: 97803; 99211

== ENCOUNTER → 2018-09-12 | Outpatient (CLI) | payer BC ==
[2018-09-12 12:13] VITALS: BP 144/78; PULSE 81; RESP 16; TEMP 98.2; BMI 50.1
--- NOTE | 2018-09-12 12:58 | P.PN ---
Subjective Progress Note Date: 09/12/18 DATE OF SERVICE: 09/12/2018 CHIEF COMPLAINT: Status post sleeve gastrectomy HISTORY OF PRESENT ILLNESS: Wendie Bland is a 58-year-old female status post sleeve gastrectomy, 08/20/2018. She has lost 41 pounds in 1.5 months. She reports a plateau at 311 pounds. "I feel great!" No nausea or vomiting. No gastroesophageal reflux disease. At height of 5 feet 6.5 inches, her ideal body weight is 154 pounds. Her highest weight was 351 pounds. She comes in 310 pounds from 320 pounds, 2 weeks ago. She has lost 10 pounds in 2 weeks. Her body mass index is down from 56.8 to 50.2. Lifetime weight loss is 41 pounds. Lifetime percent excess weight loss is 21 %. PHYSICAL EXAM: VITAL SIGNS: Height 5 foot 6 inches, weight 310 pounds. BMI 50.2 Vital Signs Temp 98.2 F 09/12/18 12:10 Pulse 81 09/12/18 12:10 Resp 16 09/12/18 12:10 BP 144/78 09/12/18 12:10 Pulse Ox GENERAL: Well-developed in no acute distress. HEENT: No scleral icterus. Extraocular movements grossly intact. Hears conversational speech. No nasal drainage. NECK: Supple without lymphadenopathy. CHEST: Nonlabored respirations with equal bilateral excursions. CARDIOVASCULAR: Regular rate and regular rhythm. Distal 2+ pulses. ABDOMEN: Incisions clean dry and intact. No cellulitis. MUSCULOSKELETAL: No clubbing, cyanosis. NEURO: No focal or lateralizing signs. Cranial nerves 2 through 12 grossly within normal limits. PSYCH: Appropriate affect. Alert and oriented to person, place and time. SKIN: Good skin turgor. Well perfused. ASSESSMENT: 1. Morbid obesity due to excess calories 2. Body mass index of 56.8 to 50.2 3. Osteoarthritis of the knees. 4. Osteoarthritis of the lower back. 5. Hypertensive heart disease. 7. Asthma 8. Chronic obstructive pulmonary disorder 9. Depressive disorder 10. Postoperative nausea and vomiting 11. Anxiety 12. Iron deficiency anemia 13. Vitamin D deficiency 14. Status post sleeve gastrectomy 15. Obstructive sleep apnea PLAN: 1. Recommend bariatric labs 2. Recommend adjustment of CPAP as she has lost weight and reports fatigue 3. Start MVI 4. She may swim 5. She is okay for activities 6. All restrictions are lifted after September 19 Objective - Vital Signs Vital signs: Vital Signs Temp 98.2 F 09/12/18 12:10 Pulse 81 09/12/18 12:10 Resp 16 09/12/18 12:10 BP 144/78 09/12/18 12:10 Pulse Ox Intake & Output 09/11/18 09/12/18 09/12/18 18:59 06:59 18:59 Weight 141.067 kg - Labs CBC & Chem 7: 09/12/18 16:24 09/12/18 16:24
[2018-09-12 16:51] LABS: HCT 39.5 % (34.0-46.0); HGB 12.7 gm/dL (11.4-16.0); MCH 28.2 pg (25.0-35.0); MCHC 32.2 g/dL (31.0-37.0); MCV 87.6 fL (80.0-100.0); Mean Platelet Volume 6.7; Platelet Count 238 k/uL (150-450); RBC 4.51 m/uL (3.80-5.40); RDW 14.6 % (11.5-15.5); WBC 6.7 k/uL (3.8-10.6)
[2018-09-12 17:19] LABS: Partial Thromboplastin Time 25.7 sec (22.0-30.0); Prothrombin Time 10.8 sec (9.0-12.0)
[2018-09-13 00:09] LABS: Parathyroid Hormone Intact 62.6 pg/mL (14.0-72.0)
[2018-09-13 00:21] LABS: African American GFR (CKD) 93.5 (60.0-200.0); Albumin 4.5 g/dL (3.80-4.90); Albumin/Globulin Ratio 2.37 (1.60-3.17); Anion Gap 10.7 mmol/L (4.00-12.00); BUN/Creat Ratio 22.5 Ratio (12.00-20.00); Calcium 9.6 mg/dL (8.7-10.3); Carbon Dioxide 24.3 mmol/L (21.6-31.8); Globulin 1.9 g/dL (1.6-3.3); LDL Cholesterol,Calculated 102.4 mg/dL (0.0-131.0); Phosphorus 3.7 mg/dL (2.4-5.1); Potassium 3.8 mmol/L (3.5-5.5); Total Bilirubin 0.5 mg/dL (0.3-1.2); Total Protein 6.4 g/dL (6.2-8.2); VLDL Calculation 53.6 mg/dL (5.00-40.00)
[2018-09-13 04:26] LABS: Hemoglobin A1C 5.5 % (4.0-6.0)
[2018-09-13 06:08] LABS: Iron Saturation 17.67 (12.00-45.00)
[2018-09-13 06:12] LABS: Folate, Serum >24.0 ng/mL; Vitamin D 25 Hydroxy 41.1 ng/mL (30.0-100.0)
[2018-09-13 13:05] LABS: Zinc, Serum 72 ug/dL (60-130)
[2018-09-14 06:46] LABS: Vitamin A 53 ug/dL (38-106)
[2018-09-14 07:29] LABS: Vit B1(Thiamine) 64 ug/L (38-122)
[2018-09-15 17:30] LABS: Selenium 132 mcg/L (63-160)
== END | disposition home or self-care (01) ==
LOC: BARWHC3 12:00
PROVIDERS: ATTEND Surgery Plastic and Reconstructive Surgery
DX: Z48.815 Encounter for surgical aftercare following surgery on the digestive system (principal); E66.01 Morbid (severe) obesity due to excess calories; M17.0 Bilateral primary osteoarthritis of knee; M47.816 Spondylosis without myelopathy or radiculopathy, lumbar region; I11.9 Hypertensive heart disease without heart failure; I50.9 Heart failure, unspecified; J45.909 Unspecified asthma, uncomplicated; J44.9 Chronic obstructive pulmonary disease, unspecified; F32.9 Major depressive disorder, single episode, unspecified; F41.9 Anxiety disorder, unspecified; D50.9 Iron deficiency anemia, unspecified; E55.9 Vitamin D deficiency, unspecified; G47.33 Obstructive sleep apnea (adult) (pediatric); R11.2 Nausea with vomiting, unspecified; Z98.84 Bariatric surgery status; Z68.43 Body mass index [BMI] 50.0-59.9, adult
CPT/HCPCS: 80053; 80061; 82306; 82525; 82607; 82728; 82746; 83036; 83540; 83550; 83735; 83970; 84100; 84134; 84255; 84425; 84443; 84590; 84630; 85027; 85610; 85730; 99211

== ENCOUNTER → 2018-10-10 | Outpatient (CLI) | payer BC ==
--- NOTE | 2018-10-10 09:14 | US ---
EXAMINATION TYPE: US liver DATE OF EXAM: 10/10/2018 COMPARISON: NONE CLINICAL HISTORY: R16.0 Hepatomegaly, not elsewhere classified. Enlarged liver, hx gastric sleeve 08/05 019 EXAM MEASUREMENTS: Liver Length: 22.7 cm Gallbladder Wall: 0.1 cm CBD: 0.6 cm Right Kidney: 12.5 x 5.6 x 5.0 cm Pancreas: Appears echogenic. Tail not well visualized due to overlying bowel gas Liver: Enlarged in size Gallbladder: wnl Evidence for sonographic Garcia's sign: neg CBD: wnl Right Kidney: wnl IMPRESSION: Hepatomegaly, otherwise unremarkable hepatic ultrasound.
== END | disposition home or self-care (01) ==
LOC: RADUSWWP 07:11
PROVIDERS: ATTEND Family Medicine
DX: R16.0 Hepatomegaly, not elsewhere classified (principal)
CPT/HCPCS: 76705

== ENCOUNTER → 2018-10-10 | Outpatient (CLI) | payer BC ==
[2018-10-10 10:50] VITALS: BMI 47.0
== END | disposition home or self-care (01) ==
LOC: BARWHC3 08:53
PROVIDERS: ATTEND Surgery Plastic and Reconstructive Surgery
DX: E66.01 Morbid (severe) obesity due to excess calories (principal); Z71.3 Dietary counseling and surveillance; Z68.42 Body mass index [BMI] 45.0-49.9, adult
CPT/HCPCS: 97803

== ENCOUNTER → 2018-10-11 | Outpatient (CLI) | payer BC ==
--- NOTE | 2018-10-11 13:31 | MM ---
Reason for exam: screening (asymptomatic). Last mammogram was performed 1 year and 1 month ago. History: Patient is postmenopausal, history of other cancer, and is nulliparous. Benign US breast aspiration single RT of the right breast, September 08, 2016. Took estrogen for 2 years 6 months beginning at age 50. Took progesterone for 2 years 6 months beginning at age 50. Physical Findings: A clinical breast exam by your physician is recommended on an annual basis and results should be correlated with mammographic findings. MG 3D Screening Mammo W/Cad Bilateral CC and MLO view(s) were taken. Prior study comparison: September 12, 2017, bilateral MG 3d diag mammo w/cad ABIOLA. March 07, 2017, right breast MG 3d diag mammo w/cad RT. The breast tissue is heterogeneously dense. This may lower the sensitivity of mammography. There are benign appearing round calcifications bilaterally. Previous mammotome biopsy in the right breast. There is no discrete abnormality. ASSESSMENT: Benign, BI-RAD 2 RECOMMENDATION: Routine screening mammogram of both breasts in 1 year.
== END | disposition home or self-care (01) ==
LOC: RADMAMWWP 07:32
PROVIDERS: ATTEND Family Medicine
DX: Z12.31 Encounter for screening mammogram for malignant neoplasm of breast (principal)
CPT/HCPCS: 77063; 77067

== ENCOUNTER → 2018-11-21 | Outpatient (CLI) | payer BC ==
[2018-11-21 18:56] LABS: HCT 37.1 % (34.0-46.0); HGB 12.3 gm/dL (11.4-16.0); MCHC 33.2 g/dL (31.0-37.0); MCV 87.4 fL (80.0-100.0); Mean Platelet Volume 6.6; Platelet Count 239 k/uL (150-450); RBC 4.25 m/uL (3.80-5.40); RDW 15.2 % (11.5-15.5); WBC 6.8 k/uL (3.8-10.6)
[2018-11-21 19:05] LABS: INR 0.9 (<1.2); Partial Thromboplastin Time 27.1 sec (22.0-30.0); Prothrombin Time 10.1 sec (9.0-12.0)
[2018-11-21 22:49] LABS: Iron Saturation 19.76 (12.00-45.00)
[2018-11-21 22:55] LABS: Vitamin D 25 Hydroxy 44.6 ng/mL (30.0-100.0)
[2018-11-21 23:00] LABS: African American GFR (CKD) 109.9 (60.0-200.0); Albumin 4.4 g/dL (3.80-4.90); Albumin/Globulin Ratio 2.32 (1.60-3.17); Anion Gap 9.2 mmol/L (4.00-12.00); BUN/Creat Ratio 27.14 Ratio (12.00-20.00); Calcium 9.3 mg/dL (8.7-10.3); Carbon Dioxide 26.8 mmol/L (21.6-31.8); Chol/HDL Ratio 6.31; Globulin 1.9 g/dL (1.6-3.3); LDL Cholesterol,Calculated 93.2 mg/dL (0.0-131.0); Magnesium 2.2 mg/dL (1.5-2.4); Phosphorus 3.5 mg/dL (2.4-5.1); Potassium 4.2 mmol/L (3.5-5.5); Total Bilirubin 0.5 mg/dL (0.3-1.2); Total Protein 6.3 g/dL (6.2-8.2); VLDL Calculation 76.8 mg/dL (5.00-40.00)
[2018-11-21 23:28] LABS: Folate, Serum >24.0 ng/mL
[2018-11-21 23:31] LABS: Hemoglobin A1C 5.2 % (4.0-6.0)
[2018-11-23 13:05] LABS: Zinc, Serum 94 ug/dL (60-130)
== END | disposition home or self-care (01) ==
LOC: LABMAIN 17:46
PROVIDERS: ATTEND Surgery Plastic and Reconstructive Surgery
DX: E21.1 Secondary hyperparathyroidism, not elsewhere classified (principal); E89.1 Postprocedural hypoinsulinemia; D50.9 Iron deficiency anemia, unspecified; K90.9 Intestinal malabsorption, unspecified; E55.9 Vitamin D deficiency, unspecified; K74.1 Hepatic sclerosis; N19 Unspecified kidney failure; K50.90 Crohn's disease, unspecified, without complications
CPT/HCPCS: 36415; 80053; 80061; 82306; 82525; 82607; 82728; 82746; 83036; 83540; 83550; 83735; 83970; 84100; 84134; 84255; 84425; 84443; 84590; 84630; 85027; 85610; 85730

== ENCOUNTER → 2018-11-21 | Outpatient (CLI) | payer BC ==
[2018-11-21 17:02] VITALS: BP 146/74; PULSE 79; TEMP 97.9; BMI 44.5
--- NOTE | 2018-11-21 17:21 | P.PN ---
Subjective Progress Note Date: 11/21/18 HPI: She has lost 80 pounds in 3 months. She had the sleeve gastrectomy. She feels great. She is walking around much. She is not taking any heartburn. She is still using a CPAP machine that is on auto-control. She reports good sleep. No dysphagia. Rare constipation. No abdominal pain. She has sinus infection. Protein intake of 70 g to 100 g ABDOMEN: Unremarkable PLAN: 1. Recommend labs. 2. Follow up in February Objective - Vital Signs Vital signs: Vital Signs Temp 97.9 F 11/21/18 16:49 Pulse 79 11/21/18 16:49 Resp BP 146/74 11/21/18 16:49 Pulse Ox Intake & Output 11/20/18 11/21/18 11/21/18 18:59 06:59 18:59 Weight 125.191 kg
== END | disposition home or self-care (01) ==
LOC: BARWHC3 16:17
PROVIDERS: ATTEND Surgery Plastic and Reconstructive Surgery
DX: J32.9 Chronic sinusitis, unspecified (principal); Z98.84 Bariatric surgery status
CPT/HCPCS: 99211

== ENCOUNTER → 2019-02-06 | Outpatient (CLI) | payer BC ==
[2019-02-06 16:33] VITALS: BP 131/77; PULSE 72; RESP 16; TEMP 98.1; BMI 42.9
--- NOTE | 2019-02-06 16:45 | P.PN ---
Subjective Progress Note Date: 02/06/19 DATE OF SERVICE: 02/06/2019 CHIEF COMPLAINT: Status post sleeve gastrectomy HISTORY OF PRESENT ILLNESS: Wendie Bland is a 58-year-old female status post sleeve gastrectomy, 08/20/2018. She is 6 months out. She is getting 70 to 90 grams protein daily. She uses a Fit Bit. She has lost 70 pounds in 6 months. She is very active. She is getting [address] to [address] steps daily. She has family history of thyroid problems. She has gastroesophageal reflux disease with trigger foods. She is taking omeprazole for trigger foods. At height of 5 feet 6 inches, her ideal body weight is 154 pounds. Her highest weight was 351 pounds. She comes in 265 pounds from 275 pounds, 3 months ago. She has lost 10 pounds in 3 months. Her body mass index is down from 56.8 to 42.9. Lifetime weight loss is 86 pounds. Lifetime percent excess weight loss is 43 %. PHYSICAL EXAM: VITAL SIGNS: Height 5 foot 6 inches, weight 265 pounds. BMI 42.9 Vital Signs Temp 98.1 F 02/06/19 16:30 Pulse 72 02/06/19 16:30 Resp 16 02/06/19 16:30 BP 131/77 02/06/19 16:30 Pulse Ox GENERAL: Well-developed in no acute distress. HEENT: No scleral icterus. Extraocular movements grossly intact. Hears co nversational speech. No nasal drainage. NECK: Supple without lymphadenopathy. CHEST: Nonlabored respirations with equal bilateral excursions. CARDIOVASCULAR: Regular rate and regular rhythm. Distal 2+ pulses. ABDOMEN: Soft nontender. No hernias. MUSCULOSKELETAL: No clubbing, cyanosis. NEURO: No focal or lateralizing signs. Cranial nerves 2 through 12 grossly within normal limits. PSYCH: Appropriate affect. Alert and oriented to person, place and time. SKIN: Good skin turgor. Well perfused. LABS: Iron is low. ASSESSMENT: 1. Morbid obesity due to excess calories 2. Body mass index of 56.8 to 44.5 3. Osteoarthritis of the knees. 4. Osteoarthritis of the lower back. 5. Hypertensive heart disease. 7. Asthma 8. Chronic obstructive pulmonary disorder 9. Depressive disorder 10. Postoperative nausea and vomiting 11. Anxiety 12. Iron deficiency anemia 13. Vitamin D deficiency 14. Status post sleeve gastrectomy 15. Obstructive sleep apnea PLAN: 1. Recommend bariatric labs. 2. Follow up 9 months post op. Laboratory Last Values WBC 8.4 k/uL (3.8-10.6) 02/06/19 17:39 RBC 4.33 m/uL (3.80-5.40) 02/06/19 17:39 Hgb 13.0 gm/dL (11.4-16.0) 02/06/19 17:39 Hct 38.8 % (34.0-46.0) 02/06/19 17:39 MCV 89.6 fL (80.0-100.0) 02/06/19 17:39 MCH 29.9 pg (25.0-35.0) 02/06/19 17:39 MCHC 33.4 g/dL (31.0-37.0) 02/06/19 17:39 RDW 13.7 % (11.5-15.5) 02/06/19 17:39 Plt Count 236 k/uL (150-450) 02/06/19 17:39 PT 10.0 sec (9.0-12.0) 02/06/19 17:39 INR 0.9 (<1.2) 02/06/19 17:39 APTT 25.0 sec (22.0-30.0) 02/06/19 17:39 Sodium 143 mmol/L (135-145) 02/06/19 17:39 Potassium 4.4 mmol/L (3.5-5.5) 02/06/19 17:39 Chloride 106 mmol/L (96-109) 02/06/19 17:39 Carbon Dioxide 29.2 mmol/L (21.6-31.8) 02/06/19 17:39 Anion Gap 7.80 mmol/L (4.00-12.00) 02/06/19 17:39 BUN 22.0 mg/dL (9.0-27.0) 02/06/19 17:39 Creatinine 0.7 mg/dL (0.6-1.5) 02/06/19 17:39 Est GFR (CKD-EPI)AfAm 109.9 (60.0-200.0) 02/06/19 17:39 Est GFR (CKD-EPI)NonAf 94.8 (60.0-200.0) 02/06/19 17:39 BUN/Creatinine Ratio 31.43 Ratio (12.00-20.00) H 02/06/19 17:39 Glucose 97 mg/dL (70-110) 02/06/19 17:[address] Glu mg/dL 105 02/06/19 17:39 Hemoglobin A1c 5.3 % (4.0-6.0) 02/06/19 17:39 Calcium 9.3 mg/dL (8.7-10.3) 02/06/19 17:39 Phosphorus 3.6 mg/dL (2.4-5.1) 02/06/19 17:39 Magnesium 2.2 mg/dL (1.5-2.4) 02/06/19 17:39 Iron 45 ug/dL (50-170) L 02/06/19 17:39 TIBC 246 ug/dL (228-460) 02/06/19 17:39 % Saturation 18.29 (12.00-45.00) 02/06/19 17:39 Ferritin 104.1 ng/mL (10.0-291.0) 02/06/19 17:39 Total Bilirubin 0.3 mg/dL (0.3-1.2) 02/06/19 17:39 AST 25 U/L (13-35) 02/06/19 17:39 ALT 24 U/L (8-44) 02/06/19 17:39 Alkaline Phosphatase 71 U/L (41-126) 02/06/19 17:39 Total Protein 6.1 g/dL (6.2-8.2) L 02/06/19 17:39 Albumin 4.40 g/dL (3.80-4.90) 02/06/19 17:39 Globulin 1.7 g/dL (1.6-3.3) 02/06/19 17:39 Albumin/Globulin Ratio 2.59 g/dL (1.60-3.17) 02/06/19 17:39 Prealbumin 34.0 mg/dL (18.0-42.0) 02/06/19 17:39 Triglycerides 373.0 mg/dL (0.0-149.0) H 02/06/19 17:39 Cholesterol 217 mg/dL (0-200) H 02/06/19 17:39 LDL Cholesterol, Calc 102.4 mg/dL (0.0-131.0) 02/06/19 17:39 VLDL Cholesterol, Calc 74.60 mg/dL (5.00-40.00) H 02/06/19 17:39 HDL Cholesterol 40.0 mg/dL (40.0-60.0) 02/06/19 17:39 Cholesterol/HDL Ratio 5.43 02/06/19 17:39 Vitamin A 82 ug/dL (38-106) 02/06/19 17:39 Vitamin B1 93 ug/L (38-122) 02/06/19 17:39 Vitamin B12 1304.0 pg/mL (200.0-944.0) H 02/06/19 17:39 Vitamin D 25-Hydroxy 60.0 ng/mL (30.0-100.0) 02/06/19 17:39 Folate >24.0 ng/mL 02/06/19 17:39 TSH 1.510 uIU/mL (0.350-5.500) 02/06/19 17:39 PTH Intact 76.8 pg/mL (14.0-72.0) H 02/06/19 17:39 Copper 1174 ug/L (810-1990) 02/06/19 17:39 Selenium 143 mcg/L (63-160) 02/06/19 17:39 Zinc 83 ug/dL (60-130) 02/06/19 17:39 Iron is low Protein is low PTH is elevated Objective - Vital Signs Vital signs: Vital Signs Temp 98.1 F 02/06/19 16:30 Pulse 72 02/06/19 16:30 Resp 16 02/06/19 16:30 BP 131/77 02/06/19 16:30 Pulse Ox Intake & Output 02/05/19 02/06/19 02/06/19 18:59 06:59 18:59 Weight 120.656 kg - Labs CBC & Chem 7: 02/06/19 17:39 02/06/19 17:39
[2019-02-06 18:16] LABS: INR 0.9 (<1.2)
[2019-02-06 18:18] LABS: HCT 38.8 % (34.0-46.0); MCH 29.9 pg (25.0-35.0); MCHC 33.4 g/dL (31.0-37.0); MCV 89.6 fL (80.0-100.0); Mean Platelet Volume 5.2; Platelet Count 236 k/uL (150-450); RBC 4.33 m/uL (3.80-5.40); RDW 13.7 % (11.5-15.5); WBC 8.4 k/uL (3.8-10.6)
[2019-02-06 23:51] LABS: % Iron Saturation 18.29 (12.00-45.00); ALT 24 U/L (8-44); AST 25 U/L (13-35); African American GFR (CKD) 109.9 (60.0-200.0); Albumin/Globulin Ratio 2.59 (1.60-3.17); Alkaline Phosphatase 71 U/L (41-126); BUN/Creat Ratio 31.43 Ratio (12.00-20.00); Calcium 9.3 mg/dL (8.7-10.3); Carbon Dioxide 29.2 mmol/L (21.6-31.8); Chloride 106 mmol/L (96-109); Chol/HDL Ratio 5.43; Cholesterol 217 mg/dL (0-200); Globulin 1.7 g/dL (1.6-3.3); Glucose 97 mg/dL (70-110); Iron 45 ug/dL (50-170); LDL Cholesterol,Calculated 102.4 mg/dL (0.0-131.0); Magnesium 2.2 mg/dL (1.5-2.4); Non-African American GFR(CKD) 94.8 (60.0-200.0); Phosphorus 3.6 mg/dL (2.4-5.1); Potassium 4.4 mmol/L (3.5-5.5); Sodium 143 mmol/L (135-145); Total Bilirubin 0.3 mg/dL (0.3-1.2); Total Iron Binding Capacity 246 ug/dL (228-460); Total Protein 6.1 g/dL (6.2-8.2)
[2019-02-06 23:59] LABS: Ferritin 104.1 ng/mL (10.0-291.0)
[2019-02-07 00:03] LABS: Folate, Serum >24.0 ng/mL
[2019-02-07 01:26] LABS: Hemoglobin A1C 5.3 % (4.0-6.0)
[2019-02-08 14:13] LABS: Zinc, Serum 83 ug/dL (60-130)
[2019-02-11 07:52] LABS: Vitamin A 82 ug/dL (38-106)
[2019-02-11 08:27] LABS: Vit B1(Thiamine) 93 ug/L (38-122)
[2019-02-13 15:20] LABS: Selenium 143 mcg/L (63-160)
== END | disposition home or self-care (01) ==
LOC: BARWHC3 16:20
PROVIDERS: ATTEND Surgery Plastic and Reconstructive Surgery
DX: Z48.815 Encounter for surgical aftercare following surgery on the digestive system (principal); E66.01 Morbid (severe) obesity due to excess calories; M17.0 Bilateral primary osteoarthritis of knee; I11.9 Hypertensive heart disease without heart failure; J44.9 Chronic obstructive pulmonary disease, unspecified; F41.8 Other specified anxiety disorders; D50.9 Iron deficiency anemia, unspecified; E55.9 Vitamin D deficiency, unspecified; G47.33 Obstructive sleep apnea (adult) (pediatric); K95.89 Other complications of other bariatric procedure; R11.2 Nausea with vomiting, unspecified; Z68.41 Body mass index [BMI] 40.0-44.9, adult; Z98.84 Bariatric surgery status; E21.1 Secondary hyperparathyroidism, not elsewhere classified; E89.1 Postprocedural hypoinsulinemia; K90.9 Intestinal malabsorption, unspecified; K76.9 Liver disease, unspecified; N19 Unspecified kidney failure; K50.90 Crohn's disease, unspecified, without complications
CPT/HCPCS: 36415; 80053; 80061; 82306; 82525; 82607; 82728; 82746; 83036; 83540; 83550; 83735; 83970; 84100; 84134; 84255; 84425; 84443; 84590; 84630; 85027; 85610; 85730; 97803; 99211

== ENCOUNTER → 2019-06-19 | Outpatient (CLI) | payer BC ==
[2019-06-19 12:16] LABS: HCT 37.5 % (34.0-46.0); HGB 12.2 gm/dL (11.4-16.0); MCH 29.8 pg (25.0-35.0); MCHC 32.6 g/dL (31.0-37.0); MCV 91.4 fL (80.0-100.0); Mean Platelet Volume 6.9; Platelet Count 225 k/uL (150-450); RBC 4.11 m/uL (3.80-5.40); RDW 13.4 % (11.5-15.5); WBC 7.4 k/uL (3.8-10.6)
[2019-06-19 12:21] LABS: Partial Thromboplastin Time 25.5 sec (22.0-30.0); Prothrombin Time 10.3 sec (9.0-12.0)
[2019-06-19 18:37] LABS: Ferritin 154.4 ng/mL (10.0-291.0)
[2019-06-19 18:41] LABS: % Iron Saturation 20.16 (12.00-45.00); ALT 21 U/L (8-44); AST 26 U/L (13-35); African American GFR (CKD) 93.5 (60.0-200.0); Albumin/Globulin Ratio 2.26 (1.60-3.17); Alkaline Phosphatase 88 U/L (41-126); Calcium 9.6 mg/dL (8.7-10.3); Chloride 105 mmol/L (96-109); Chol/HDL Ratio 5.97; Cholesterol 221 mg/dL (0-200); Folate, Serum >24.0 ng/mL; Globulin 1.9 g/dL (1.6-3.3); Glucose 94 mg/dL (70-110); Iron 51 ug/dL (50-170); Magnesium 2.2 mg/dL (1.5-2.4); Non-African American GFR(CKD) 80.7 (60.0-200.0); Phosphorus 4.2 mg/dL (2.4-5.1); Potassium 4.1 mmol/L (3.5-5.5); Sodium 146 mmol/L (135-145); Total Bilirubin 0.4 mg/dL (0.3-1.2); Total Iron Binding Capacity 253 ug/dL (228-460); Total Protein 6.2 g/dL (6.2-8.2)
[2019-06-19 20:44] LABS: Hemoglobin A1C 4.8 % (4.0-6.0)
[2019-06-20 13:32] LABS: Zinc, Serum 87 ug/dL (60-130)
[2019-06-21 08:27] LABS: Vit B1(Thiamine) 95 ug/L (38-122)
== END | disposition home or self-care (01) ==
LOC: LABWHC1 11:23
PROVIDERS: ATTEND Surgery Plastic and Reconstructive Surgery
DX: E21.1 Secondary hyperparathyroidism, not elsewhere classified (principal); E89.1 Postprocedural hypoinsulinemia; K90.9 Intestinal malabsorption, unspecified; E55.9 Vitamin D deficiency, unspecified; K74.1 Hepatic sclerosis; N19 Unspecified kidney failure; K50.90 Crohn's disease, unspecified, without complications; D50.9 Iron deficiency anemia, unspecified; E66.01 Morbid (severe) obesity due to excess calories
CPT/HCPCS: 36415; 80053; 80061; 82306; 82525; 82607; 82728; 82746; 83036; 83540; 83550; 83721; 83735; 83970; 84100; 84134; 84255; 84425; 84443; 84590; 84630; 85027; 85610; 85730

== ENCOUNTER → 2019-07-31 | Outpatient (CLI) | payer BC ==
[2019-07-31 13:11] VITALS: BP 134/76; PULSE 61; RESP 20; TEMP 98; BMI 41.1
--- NOTE | 2019-07-31 13:50 | P.PN ---
Subjective Progress Note Date: 07/31/19 She has lost 100 pounds. 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 Highest 352 pounds. No GERD. She is coping. She is active with walking daily and journals every day. Steps 12,000+ steps a day. She works out everyday despite the weather. No belly pain. She is getting protein 70 to 90 grams. She wants to get down to 55 pounds. She reports panniculitis. She went to urgent care for panniculitis and the severity of infection. She uses lotrimine cream for her infections. Recommend follow up in 6 months. She wants a possible panniculectomy. She has vericose veins and has pressure along the legs. Recommend referral to vascular surgeon, Dr. Nunez. She is 1 year out. Cholesterol elevated. Recommend repeat with labs in August. Otherwise doing well Objective - Vital Signs Vital signs: Vital Signs Temp 98.0 F 07/31/19 13:08 Pulse 61 07/31/19 13:08 Resp 20 07/31/19 13:08 BP 134/76 07/31/19 13:08 Pulse Ox Intake & Output 07/30/19 07/31/19 07/31/19 18:59 06:59 18:59 Weight 115.757 kg
== END | disposition home or self-care (01) ==
LOC: BARWHC3 12:58
PROVIDERS: ATTEND Surgery Plastic and Reconstructive Surgery
DX: E66.01 Morbid (severe) obesity due to excess calories (principal); M79.3 Panniculitis, unspecified; Z68.41 Body mass index [BMI] 40.0-44.9, adult; Z79.899 Other long term (current) drug therapy
CPT/HCPCS: 97803; 99211

== ENCOUNTER → 2019-08-23 | Outpatient (CLI) | payer BC ==
[2019-08-23 09:08] LABS: HCT 38.3 % (34.0-46.0); HGB 12.7 gm/dL (11.4-16.0); MCHC 33.3 g/dL (31.0-37.0); MCV 90.1 fL (80.0-100.0); Mean Platelet Volume 6.6; Platelet Count 267 k/uL (150-450); RBC 4.25 m/uL (3.80-5.40); RDW 13.2 % (11.5-15.5); WBC 6.5 k/uL (3.8-10.6)
[2019-08-23 09:13] LABS: INR 0.9 (<1.2); Partial Thromboplastin Time 25.2 sec (22.0-30.0); Prothrombin Time 9.9 sec (9.0-12.0)
[2019-08-23 16:50] LABS: % Iron Saturation 22.82 (12.00-45.00); ALT 18 U/L (8-44); AST 21 U/L (13-35); African American GFR (CKD) 114.8 (60.0-200.0); Albumin/Globulin Ratio 2.15 (1.60-3.17); Alkaline Phosphatase 90 U/L (41-126); BUN/Creat Ratio 43.33 Ratio (12.00-20.00); Calcium 9.4 mg/dL (8.7-10.3); Carbon Dioxide 30.3 mmol/L (21.6-31.8); Chloride 107 mmol/L (96-109); Cholesterol 198 mg/dL (0-200); Glucose 93 mg/dL (70-110); Iron 55 ug/dL (50-170); LDL Cholesterol,Calculated 102.6 mg/dL (0.0-131.0); Magnesium 2.3 mg/dL (1.5-2.4); Non-African American GFR(CKD) 99.1 (60.0-200.0); Phosphorus 3.8 mg/dL (2.4-5.1); Potassium 4.7 mmol/L (3.5-5.5); Sodium 143 mmol/L (135-145); Total Bilirubin 0.4 mg/dL (0.3-1.2); Total Iron Binding Capacity 241 ug/dL (228-460); Total Protein 6.3 g/dL (6.2-8.2)
[2019-08-23 16:58] LABS: Ferritin 153.1 ng/mL (10.0-291.0)
[2019-08-23 17:13] LABS: Folate, Serum >24.0 ng/mL
[2019-08-23 17:25] LABS: Hemoglobin A1C 5.3 % (4.0-6.0)
[2019-08-26 13:10] LABS: Zinc, Serum 88 ug/dL (60-130)
[2019-08-27 06:39] LABS: Vit B1(Thiamine) 67 ug/L (38-122)
[2019-08-27 07:22] LABS: Vitamin A 61 ug/dL (38-106)
[2019-08-28 19:08] LABS: Selenium 80 mcg/L (63-160)
== END | disposition home or self-care (01) ==
LOC: LABWHC1 08:06
PROVIDERS: ATTEND Surgery Plastic and Reconstructive Surgery
DX: E21.1 Secondary hyperparathyroidism, not elsewhere classified (principal); D50.9 Iron deficiency anemia, unspecified; K90.9 Intestinal malabsorption, unspecified; E55.9 Vitamin D deficiency, unspecified; K74.1 Hepatic sclerosis; N19 Unspecified kidney failure; K50.90 Crohn's disease, unspecified, without complications; E89.1 Postprocedural hypoinsulinemia; E66.01 Morbid (severe) obesity due to excess calories
CPT/HCPCS: 36415; 80053; 80061; 82306; 82525; 82607; 82728; 82746; 83036; 83540; 83550; 83735; 83970; 84100; 84134; 84255; 84425; 84443; 84590; 84630; 85027; 85610; 85730

== ENCOUNTER → 2020-01-29 | Outpatient (CLI) | payer BC ==
[2020-01-29 13:28] VITALS: BP 170/90; PULSE 80; RESP 18; TEMP 98.2
--- NOTE | 2020-01-29 14:04 | P.PN ---
Subjective Progress Note Date: 01/29/20 DATE OF SERVICE: 01/29/2020 CHIEF COMPLAINT: Status post sleeve gastrectomy HISTORY OF PRESENT ILLNESS: Wendie Bland is a 59-year-old female status post sleeve gastrectomy, 08/20/2018. She is over 1 year out. She has lost 120 pounds. She had two knee replacements in 5 years. She reports pain with bending the knee. Her blood pressure medication was reduced. She is on her multivitamins. Her goal is to get down to 200 pounds. She denies active gastroesophageal reflux disease. At height of 5 feet 6 inches, her ideal body weight is 154 pounds. Her highest weight was 352 pounds. She comes in 230 pounds from 255 pounds, 6 months ago. She has lost 25 pounds in 6 months. Her body mass index is down from 56.9 to 37.1. Lifetime weight loss is 122 pounds. Lifetime percent excess weight loss is 62 %. PHYSICAL EXAM: VITAL SIGNS: Height 5 foot 6 inches, weight 230 pounds. BMI 37.1 Vital Signs Temp 98.2 F 01/29/20 13:22 Pulse 80 01/29/20 13:22 Resp 18 01/29/20 13:22 BP 170/90 01/29/20 13:22 Pulse Ox GENERAL: Well-developed in no acute distress. HEENT: No scleral icterus. Extraocular movements grossly intact. Hears conversational speech. No nasal drainage. NECK: Supple without lymphadenopathy. CHEST: Nonlabored respirations with equal bilateral excursions. CARDIOVASCULAR: Regular rate and regular rhythm. Distal 2+ pulses. ABDOMEN: Soft nontender. No hernias. MUSCULOSKELETAL: No clubbing, cyanosis. NEURO: No focal or lateralizing signs. Cranial nerves 2 through 12 grossly within normal limits. PSYCH: Appropriate affect. Alert and oriented to person, place and time. SKIN: Good skin turgor. Well perfused. ASSESSMENT: 1. Morbid obesity due to excess calories 2. Body mass index of 56.8 to 41.2 3. Osteoarthritis of the knees. 4. Osteoarthritis of the lower back. 5. Hypertensive heart disease. 7. Asthma 8. Chronic obstructive pulmonary disorder 9. Depressive disorder 10. Postoperative nausea and vomiting 11. Anxiety 12. Iron deficiency anemia 13. Vitamin D deficiency 14. Status post sleeve gastrectomy 15. Obstructive sleep apnea 16. Varicose veins 17. Hypercholesterolemia PLAN: 1. Recommend bariatric labs. 2. Recommend food diary journal Objective - Vital Signs Vital signs: Vital Signs Temp 98.2 F 01/29/20 13:22 Pulse 80 01/29/20 13:22 Resp 18 01/29/20 13:22 BP 170/90 01/29/20 13:22 Pulse Ox Intake & Output 01/28/20 01/29/20 01/29/20 18:59 06:59 18:59 Weight 104.326 kg - Labs CBC & Chem 7: 01/29/20 14:29 01/29/20 14:29
[2020-01-29 15:05] LABS: HCT 35.2 % (34.0-46.0); HGB 11.5 gm/dL (11.4-16.0); MCH 27.9 pg (25.0-35.0); MCHC 32.6 g/dL (31.0-37.0); MCV 85.6 fL (80.0-100.0); Mean Platelet Volume 6.4; Platelet Count 298 k/uL (150-450); RBC 4.11 m/uL (3.80-5.40); RDW 13.9 % (11.5-15.5); WBC 7.4 k/uL (3.8-10.6)
[2020-01-30 00:30] LABS: % Iron Saturation 8.23 (12.00-45.00); African American GFR (CKD) 114.8 (60.0-200.0); Albumin 4.2 g/dL (3.80-4.90); Albumin/Globulin Ratio 2.21 (1.60-3.17); Anion Gap 8.8 mmol/L (4.00-12.00); BUN/Creat Ratio 36.67 Ratio (12.00-20.00); Calcium 9.3 mg/dL (8.7-10.3); Carbon Dioxide 29.2 mmol/L (21.6-31.8); Chol/HDL Ratio 6.06; Folate, Serum 19.2 ng/mL; Globulin 1.9 g/dL (1.6-3.3); LDL Cholesterol,Calculated 114.6 mg/dL (0.0-131.0); Magnesium 2.1 mg/dL (1.5-2.4); Non-African American GFR(CKD) 99.1 (60.0-200.0); Phosphorus 4.4 mg/dL (2.4-5.1); Total Bilirubin 0.3 mg/dL (0.3-1.2); Total Protein 6.1 g/dL (6.2-8.2); VLDL Calculation 52.4 mg/dL (5.00-40.00)
[2020-01-30 03:20] LABS: INR 0.96 (0.90-1.11); Partial Thromboplastin Time 28.3 sec (23.5-31.0); Prothrombin Time 10.4 sec (9.9-11.9)
[2020-01-30 03:25] LABS: Hemoglobin A1C 5.4 % (4.0-6.0)
[2020-01-31 13:55] LABS: Zinc, Serum 68 ug/dL (60-130)
[2020-02-01 19:04] LABS: Selenium 130 mcg/L (63-160)
[2020-02-03 06:29] LABS: Vit B1(Thiamine) 82 ug/L (38-122)
[2020-02-03 06:47] LABS: Vitamin A 55 ug/dL (38-106)
== END | disposition home or self-care (01) ==
LOC: BARWHC3 12:56
PROVIDERS: ATTEND Surgery Plastic and Reconstructive Surgery
DX: E66.01 Morbid (severe) obesity due to excess calories (principal); M17.0 Bilateral primary osteoarthritis of knee; M47.9 Spondylosis, unspecified; I11.9 Hypertensive heart disease without heart failure; J44.9 Chronic obstructive pulmonary disease, unspecified; F32.9 Major depressive disorder, single episode, unspecified; D50.9 Iron deficiency anemia, unspecified; E55.9 Vitamin D deficiency, unspecified; G47.33 Obstructive sleep apnea (adult) (pediatric); R11.2 Nausea with vomiting, unspecified; E78.00 Pure hypercholesterolemia, unspecified; F41.9 Anxiety disorder, unspecified; I83.90 Asymptomatic varicose veins of unspecified lower extremity; Z98.84 Bariatric surgery status; Z68.41 Body mass index [BMI] 40.0-44.9, adult
CPT/HCPCS: 80053; 80061; 82306; 82525; 82607; 82728; 82746; 83036; 83540; 83550; 83735; 83970; 84100; 84134; 84255; 84425; 84443; 84590; 84630; 85027; 85610; 85730; 99211

== ENCOUNTER → 2020-08-19 | Outpatient (CLI) | payer BC ==
--- NOTE | 2020-08-19 15:07 | P.PN ---
Subjective Progress Note Date: 08/19/20 Patient left without being seen.
== END ==
LOC: BARWHC3 12:40
PROVIDERS: ATTEND Surgery Plastic and Reconstructive Surgery
DX: Z53.21 Procedure and treatment not carried out due to patient leaving prior to being seen by health care provider (principal)

== ENCOUNTER → 2020-08-26 | Outpatient (CLI) | payer BC ==
--- NOTE | 2020-08-26 12:14 | P.PN ---
Subjective Progress Note Date: 08/26/20 She reports 25 pound weight gain during colon which is to be expected. She resorted to more sugars and cartilage. Recommend food dietary journal. Recommend labs. We'll evaluate TSH level. Many supplement. Follow-up in 3 weeks. No moderate reflux. We'll monitor. Overall excellent weight loss of 100 pounds
[2020-08-26 12:19] VITALS: BP 151/85; PULSE 83; TEMP 98; BMI 41.0
[2020-08-26 12:59] LABS: HCT 36.9 % (34.0-46.0); HGB 13.1 gm/dL (11.4-16.0); MCH 30.4 pg (25.0-35.0); MCHC 35.4 g/dL (31.0-37.0); MCV 85.9 fL (80.0-100.0); Mean Platelet Volume 6.5; Platelet Count 241 k/uL (150-450); RBC 4.29 m/uL (3.80-5.40); WBC 8.7 k/uL (3.8-10.6)
[2020-08-26 13:18] LABS: INR 0.9 (<1.2); Partial Thromboplastin Time 24.4 sec (22.0-30.0); Prothrombin Time 9.9 sec (9.0-12.0)
[2020-08-26 22:04] LABS: Hemoglobin A1C 5.3 % (4.0-6.0)
[2020-08-26 23:30] LABS: % Iron Saturation 19.2 (12.00-45.00); African American GFR (CKD) 108.4 (60.0-200.0); Albumin 4.5 g/dL (3.80-4.90); Albumin/Globulin Ratio 2.14 (1.60-3.17); Anion Gap 10.5 mmol/L (4.00-12.00); BUN/Creat Ratio 32.86 Ratio (12.00-20.00); Calcium 9.3 mg/dL (8.7-10.3); Carbon Dioxide 25.5 mmol/L (21.6-31.8); Chol/HDL Ratio 6.47; Globulin 2.1 g/dL (1.6-3.3); LDL Cholesterol,Calculated 129.8 mg/dL (0.0-131.0); Magnesium 2.1 mg/dL (1.5-2.4); Non-African American GFR(CKD) 93.5 (60.0-200.0); Phosphorus 4.3 mg/dL (2.4-5.1); Potassium 4.5 mmol/L (3.5-5.5); Total Bilirubin 0.3 mg/dL (0.3-1.2); Total Protein 6.6 g/dL (6.2-8.2); VLDL Calculation 67.2 mg/dL (5.00-40.00)
[2020-08-26 23:52] LABS: Ferritin 358.8 ng/mL (10.0-291.0); Folate, Serum 19.9 ng/mL
[2020-08-27 13:51] LABS: Zinc, Serum 54 ug/dL (60-130)
[2020-08-28 06:06] LABS: Vitamin A 89 ug/dL (38-106)
[2020-08-28 06:43] LABS: Vit B1(Thiamine) 75 ug/L (38-122)
== END | disposition home or self-care (01) ==
LOC: BARWHC3 11:39
PROVIDERS: ATTEND Surgery Plastic and Reconstructive Surgery
DX: E66.01 Morbid (severe) obesity due to excess calories (principal); E89.1 Postprocedural hypoinsulinemia; D50.8 Other iron deficiency anemias; K90.89 Other intestinal malabsorption; E55.9 Vitamin D deficiency, unspecified; K74.1 Hepatic sclerosis; N19 Unspecified kidney failure; K50.90 Crohn's disease, unspecified, without complications
CPT/HCPCS: 80053; 80061; 82306; 82525; 82607; 82728; 82746; 83036; 83540; 83550; 83735; 83970; 84100; 84134; 84255; 84425; 84443; 84590; 84630; 85027; 85610; 85730; 99211

== ENCOUNTER → 2020-09-08 | Outpatient (CLI) | payer BC ==
[2020-09-08 11:54] VITALS: BP 150/91; PULSE 106; RESP 18; TEMP 98
== END | disposition home or self-care (01) ==
LOC: WWCWWP 11:14
PROVIDERS: ATTEND Obstetrics & Gynecology
DX: Z12.31 Encounter for screening mammogram for malignant neoplasm of breast (principal); E66.9 Obesity, unspecified; R63.4 Abnormal weight loss; M85.80 Other specified disorders of bone density and structure, unspecified site; Z86.79 Personal history of other diseases of the circulatory system; Z68.41 Body mass index [BMI] 40.0-44.9, adult; Z78.0 Asymptomatic menopausal state
CPT/HCPCS: 77063; 77067

== ENCOUNTER → 2020-10-16 | Outpatient (CLI) | payer BC | END | disposition home or self-care (01) | LOC: LABWHC1 10:43 | PROVIDERS: ATTEND Surgery Plastic and Reconstructive Surgery | DX: E03.9 Hypothyroidism, unspecified (principal) | CPT/HCPCS: 36415; 84443 ==

== ENCOUNTER → 2021-10-12 | Outpatient (CLI) | payer BC ==
--- NOTE | 2021-10-12 16:37 | BD ---
EXAMINATION TYPE: Axial Bone Density DATE OF EXAM: 10/12/2021 CLINICAL HISTORY: 61 years year old Female. ICD-10 CODE: Z780 POSTMENOPAUSAL STATUS Height: 66 Weight: 238 FRAX RISK QUESTIONS: Alcohol (3 or more units per day): NO Family History (Parent hip fracture): NO Glucocorticoids (More than 3mos): NO History of Fracture in Adulthood: NO Secondary Osteoporosis: 1. Type 1 Diabetes: NO 2. Hyperthyroidism: NO 3. Menopause before 45: YES 4. Malnutrition: NO 5. Chronic liver disease: NO Rheumatoid Arthritis: NO Current Tobacco Use: NO RISK FACTORS HISTORY OF: Hip Fracture (Right/Left): NO Spine Fracture: NO History of Wrist Fracture: LT WRIST When: AGE 16 Surgery to Spine/Hip(right/left)/Wrist (right/left): NO Family History of Osteoporosis: MOTHER, SISTER. Active: YES Diet low in dairy products/other sources of calcium: NO Postmenopausal woman: YES Take estrogen and/or progesterone medications: NO Lost more than 2 inches in height since high school: NO Frequent falls: NO Poor Health: NO Hyperparathyroidism: NO Adrenal Insufficiency: NO MEDICATIONS: Prednisone or other steroids: NO Thyroid Medications: NO Osteoporosis Medications:NO Additional Medications: PRINIVIL, LEXAPRO, SPIRIVA INHALER, MULTI VIT., VIT D, CALCIUM, BIOTEN, GLUCO SAMINE CHONDROITIN, Additional History: PT HAS RECENTLY HAD GASTRIC SLEEVE WITH 100 POUND WEIGHT LOSS. EXAM MEASUREMENTS: Bone mineral densitometry was performed using the [employer] System. Bone mineral density as measured about the Lumbar spine is: ----- L1-L4(G/cm2): 1.350 T Score Values are as follows: ----- L1: 2.6 ----- L2: 0.8 ----- L3: 1.8 ----- L4: 0.5 ----- L1-L4: 1.4 Bone mineral density has: INCREASED 1.7 % since study of: 06/19/2017 Bone mineral density about the R hip (g/cm2): 0.898 Bone mineral density about the L hip (g/cm2): 0.829 T Score values are as follows: -----R Neck: -1.0 -----L Neck: -1.5 -----R Total: 0.4 -----L Total: -0.1 Bone mineral density has: DECREASED 9.9 % since study of: 06/19/2017 FRAX%s: The graph provided illustrates a 5.9% chance for a major osteoporotic fx and a 0.4% chance fo r the hips probability for fx in 10 years time. IMPRESSION: Osteopenia (T Score between -2.5 and -1). There is slightly increased risk of fracture and the patient may be considered for treatment. Re-Screen 2-5 years. NOTE: T-SCORE=SD OF THE YOUNG ADULT MEAN.
== END | disposition home or self-care (01) ==
LOC: RADBDWWP 14:09
PROVIDERS: ATTEND Obstetrics & Gynecology
DX: Z78.0 Asymptomatic menopausal state (principal)
CPT/HCPCS: 77080

== ENCOUNTER → 2021-10-12 | Outpatient (CLI) | payer BC ==
[2021-10-12 09:38] VITALS: BP 156/79; PULSE 71; RESP 17; TEMP 98.5
--- NOTE | 2021-10-12 10:22 | P.HPOB ---
History of Present Illness H&P Date: 10/12/21 Chief Complaint: The patient is here for her routine gynecologic exam and ma mmogram. This is a 61-year-old G0 with an LMP of 2008. The patient is without gynecologic complaints and denies any postmenopausal bleeding. She continues to actively try to lose weight following her gastric sleeve procedure and would like to get under 200 pounds. Review of Systems The patient has lost 16 pounds over the last year. She is doing this with diet and exercise. She denies respiratory, cardiac, or G.I. problems. Past Medical History Past Medical History: Asthma, Hypertension Additional Past Medical History / Comment(s): Seasonal ALLERGIES. Osteopenia. 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 multiple back injections for pain. History of Any Multi-Drug Resistant Organisms: None Reported Past Surgical History: Bariatric Surgery, Hernia Repair, Joint Replacement, Orthopedic Surgery Additional Past Surgical History / Comment(s): bilateral total knee replacement, right finger digits 2,3,5 left digits 2,3 arthiritis removed, bilateral bone fusion to thumbs , EGD GASTRIC SLEEVE 08/20/18. Past Anesthesia/Blood Transfusion Reactions: Postoperative Nausea & Vomiting (PONV) Additional Past Anesthesia/Blood Transfusion Reaction / Comment(s): antiemetic a dministered and "it helped alot' Past Psychological History: Anxiety Smoking Status: Former smoker Past Alcohol Use History: Rare (2 per year) Additional Past Alcohol Use History / Comment(s): smoked from age 18 to 34 Past Drug Use History: Marijuana Additional Drug Use History / Comment(s): Occasional medical marijuana use for back pain. Additional History: She has been since 1984 and is sexually active. 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 - Past Family History Mother Family Medical History: Dementia Additional Family Medical History / Comment(s): Macular degeneration. Father Family Medical History: Myocardial Infarction ([place]) Additional Family Medical History / Comment(s): Aortic aneurysm and macular degeneration. Brother(s) Family Medical History: Renal Disease Medications and Allergies Home Medications Medication Instructions Recorded Confirmed Type Montelukast [Singulair] 10 mg PO HS 08/06/18 10/12/21 History lisinopriL [Prinivil] 10 mg PO QAM 08/06/18 10/12/21 History Calcium Citrate 500 mg PO BID 09/17/18 10/12/21 History Escitalopram [Lexapro] 20 mg PO DAILY 07/31/19 10/12/21 History Loratadine [Claritin] 10 mg PO DAILY 07/31/19 10/12/21 History Iron 65 mg PO DAILY 01/29/20 10/12/21 History Multivitamins, Thera [Multivitamin 1 tab PO DAILY 01/29/20 10/12/21 History (formulary)] Tiotropium 18 Mcg/Puff [Spiriva] 1 puff INHALATION DAILY 01/29/20 10/12/21 History Acetylcysteine [Nac] 600 mg PO DAILY 09/08/20 10/12/21 History Biotin [Biotin Disolve] 5,000 mcg PO BID 09/08/20 10/12/21 History Furosemide [Lasix] 20 mg PO DAILY 09/08/20 10/12/21 History Magnesium 500 mg PO DAILY 09/08/20 10/12/21 History Milk Thistle 150 mg PO DAILY 09/08/20 10/12/21 History Potassium Gluconate [Potassium 99 mg PO DAILY 09/08/20 10/12/21 History Gluconate ER] Glucosam/Fidel-Msm1/C/Michael/Bosw 1 each PO BID 09/23/20 10/12/21 History [Glucosamine-Chondroitin Tablet] Cholecalciferol [Vitamin D3 (10 630 mg PO BID 10/12/21 10/12/21 History Mcg = 400 Iu)] Vit B Comp/Folic/Choline/Inosi 1 cap PO DAILY 10/12/21 10/12/21 History [B-100 Complex Capsule] carvediloL [Coreg] 6.25 mg PO BID 10/12/21 10/12/21 History Allergies Allergy/AdvReac Type Severity Reaction Status Date / Time Sulfa (Sulfonamide Allergy Dyspnea Verified 10/12/21 09:34 Antibiotics) Exam Vital Signs Temp Pulse Resp BP Pulse Ox 10/12/21 09:35 98.5 F 71 17 156/79 97 Intake and Output 10/11/21 10/12/21 10/12/21 22:59 06:59 14:59 Other: Weight 108.409 kg Height 5 feet 7 inches, weight 239 pounds, BMI 37.4. This is a well-developed well-nourished white female who is alert and oriented times 3 in no acute distress. HEENT: Within normal limits. NECK: Supple without mass or thyromegaly. CHEST AND LUNGS: Clear to auscultation. HEART: Regular rate and rhythm. BREASTS: Are without mass or discharge. AXILLARY EXAM: Negative for adenopathy. BACK: Negative for CVA tenderness. ABDOMEN: Soft, nontender, without palpable masses. PELVIC EXAM: Normal external genitalia with mild atrophy. Cervix and vagina appear normal with mild atrophy. There is no unusual discharge. There is no evidence of prolapse. The uterus is midposition, nongravid size and nontender. There are no palpable adnexal masses or tenderness. RECTAL EXAM: Rectovaginal exam is negative for mass or tenderness and is negative for occult blood. EXTREMITIES: Nontender. IMPRESSION: 1. 61-year-old menopausal female with normal gynecologic exam. 2. History of osteopenia. 3. Continued weight loss following bariatric surgery. PLAN: 1. Pap smear was deferred since she had a negative Pap smear cotest on 09/08/2020. 2. Self breast awareness was discussed with the patient. We have also discussed symptoms associated with inflammatory breast cancer. 3. Screening mammogram will be done today. 4. Osteoporosis prevention was discussed. I have stressed the importance of adequate calcium, vitamin D and regular exercise. Recommended amounts of calcium and vitamin D were also discussed. Bone density testing will will be done later today. The order slip was given to the patient for this. 5. Colorectal cancer screening was discussed. She states she will continue to do this with Cologuard testing as done through her PCP. 6. She has completed her Covid vaccination series and did receive a booster. She plans to get a second booster in the near future. 7. She was advised to return in one year for her annual well woman exam.
--- NOTE | 2021-10-13 17:58 | MM ---
Reason for Exam: Screening (asymptomatic). Last mammogram was performed 1 year(s) and 1 month(s) ago. Patient History: Menarche at age 11. Patient has no children. Postmenopausal. Other cancer. Estrogen, starting at age 50 for 2 years, 6 months. Progesterone, starting at age 50 for 2 years, 6 months. 09/08/2016, Benign Cyst Aspiration on the right side. Risk Values: Candice 5 year model risk: 1.7%. NCI Lifetime model risk: 7.7%. Prior Study Comparison: 09/12/2017 Bilateral Diagnostic Mammogram, [facility]. 10/11/2018 Bilateral Screening Mammogram, [facility]. 09/08/2020 Bilateral Screening Mammogram, [facility]. Tissue Density: The breast tissue is heterogeneously dense. This may lower the sensitivity of mammography. Findings: Analyzed By CAD. No suspicious groups of microcalcifications, spiculated or lobular masses, architectural distortion or other secondary signs of malignancy are mammographically apparent. Overall Assessment: Benign, BI-RAD 2 Management: Screening Mammogram of both breasts in 1 year. A negative mammogram report should not preclude additional follow up of suspicious palpable abnormalities. Patient should continue monthly self breast exam. A clinical breast exam by your physician is recommended on an annual basis and results should be correlated with mammographic findings. Electronically signed and approved by: Desean Lackey D.O. Radiologis
== END | disposition home or self-care (01) ==
LOC: WWCWWP 09:26
PROVIDERS: ATTEND Obstetrics & Gynecology
DX: Z12.31 Encounter for screening mammogram for malignant neoplasm of breast (principal)
CPT/HCPCS: 77063; 77067

== ENCOUNTER → 2022-04-06 | Outpatient (CLI) | payer BC ==
[2022-04-06 15:30] VITALS: BP 152/72; PULSE 75; RESP 13; TEMP 98.7; BMI 37.6
--- NOTE | 2022-04-06 16:23 | P.BASOAP ---
Subjective Progress Note Date: 04/06/22 She presents with over 100 pound weight loss. She is happy with her weight loss. No moderate heartburn. No dysphagia. No abdominal pain. No fatigue. She is taking MVI Alive. Protein intake is 80 grams daily. She had a sleeve. She is looking into weight loss. Recommend green tea, yannick, and garlic. She has constipation. She has panniculitis. She has excess skin of the arm. She has lost 130 pounds. Grade 3 panniculosis. See lineman a class for panniculitis. She sees orthopedic for back problems due to pannus. Skin of 20 + pounds. Objective - Vital Signs Vital signs: Vital Signs Temp 98.7 F 04/06/22 15:20 Pulse 75 04/06/22 15:20 Resp 13 04/06/22 15:20 BP 152/72 04/06/22 15:20 Pulse Ox FiO2 Intake & Output 04/05/22 04/06/22 04/06/22 18:59 06:59 18:59 Weight 105.778 kg Assessment/Plan Plan: Date: 04/06/22 Initial Weight: 147.985 kg Initial BMI: 52.6 Current Weight: 105.778 kg Current BMI: 37.6 Type of Surgery: Total Volume in Band: Previous Volume: Volume Removed: Volume Added: Band Size:
== END ==
LOC: BARWHC3 14:36
PROVIDERS: ATTEND Surgery Plastic and Reconstructive Surgery
DX: E66.01 Morbid (severe) obesity due to excess calories (principal); Z68.37 Body mass index [BMI] 37.0-37.9, adult
CPT/HCPCS: 99211

== ENCOUNTER → 2022-04-08 | Outpatient (CLI) | payer BC ==
[2022-04-08 15:13] LABS: INR 0.9 (<1.2); Prothrombin Time 9.9 sec (9.0-12.0)
[2022-04-08 15:14] LABS: Partial Thromboplastin Time 24.9 sec (22.0-30.0)
[2022-04-08 23:13] LABS: HCT 40.8 % (37.2-46.3); HGB 12.8 g/dL (12.0-15.0); MCH 28.7 pg (27.0-32.0); MCHC 31.4 g/dL (32.0-37.0); MCV 91.5 fL (80.0-97.0); Mean Platelet Volume 9.2 fL (9.5-12.2); NRBC Per 100 WBC 0 /100 WBCS (0.0-0.0); Platelet Count 193 X 10*3/uL (140-440); RBC 4.46 X 10*6/uL (4.10-5.20); RDW 12.9 % (11.5-14.5); WBC 5.95 X 10*3/uL (4.50-10.00)
[2022-04-09 02:06] LABS: % Iron Saturation 14.92 (12.00-45.00); ALT 21 U/L (8-44); AST 20 U/L (13-35); African American GFR (CKD) 95.5 (60.0-200.0); Albumin 4.5 g/dL (3.8-4.9); Albumin/Globulin Ratio 2.45 (1.60-3.17); Alkaline Phosphatase 84 U/L (41-126); BUN/Creat Ratio 29.62 Ratio (12.00-20.00); Blood Urea Nitrogen 22.9 mg/dL (9.0-27.0); Calcium 9.3 mg/dL (8.7-10.3); Chloride 107 mmol/L (96-109); Globulin 1.8 g/dL (1.6-3.3); Glucose 131 mg/dL (70-110); Iron 37 ug/dL (50-170); Magnesium 2.4 mg/dL (1.5-2.4); Non-African American GFR(CKD) 82.4 (60.0-200.0); Phosphorus 3.9 mg/dL (2.4-5.1); Potassium 4.1 mmol/L (3.5-5.5); Sodium 144 mmol/L (135-145); Total Bilirubin <0.15 mg/dL (0.30-1.20); Total Iron Binding Capacity 251 ug/dL (228-460); Total Protein 6.3 g/dL (6.2-8.2)
[2022-04-09 02:20] LABS: Chol/HDL Ratio 7.04 Ratio; LDL Cholesterol,Calculated 157.1 mg/dL (0.0-131.0); Prealbumin 29.4 mg/dL (18.0-42.0)
== END | disposition home or self-care (01) ==
LOC: LABWHC1 13:20
PROVIDERS: ATTEND Surgery Plastic and Reconstructive Surgery
DX: E89.1 Postprocedural hypoinsulinemia (principal); E66.01 Morbid (severe) obesity due to excess calories; D50.9 Iron deficiency anemia, unspecified; K91.2 Postsurgical malabsorption, not elsewhere classified; E46 Unspecified protein-calorie malnutrition; E55.9 Vitamin D deficiency, unspecified; K74.1 Hepatic sclerosis; N19 Unspecified kidney failure; T56.894A Toxic effect of other metals, undetermined, initial encounter; K50.90 Crohn's disease, unspecified, without complications; D50.8 Other iron deficiency anemias
CPT/HCPCS: 36415; 80053; 80061; 82306; 82525; 82607; 82728; 82747; 83036; 83540; 83550; 83735; 83970; 84100; 84134; 84255; 84425; 84443; 84590; 84630; 85027; 85610; 85730

== ENCOUNTER → 2022-10-18 | Outpatient (CLI) | payer BC ==
[2022-10-18 14:09] VITALS: BP 124/84; PULSE 74; RESP 18; TEMP 98
--- NOTE | 2022-10-18 14:44 | P.HPOB ---
History of Present Illness H&P Date: 10/18/22 Chief Complaint: The patient is here for her routine gynecologic exam and ma mmogram. This is a 62-year-old G0 with an LMP of 2008. The patient is without gynecologic complaints. She continues to actively try to lose weight after her bariatric surgery in 2019. She would like to get under 200 pounds. Review of Systems She is lost 13 pounds over the past year. She continues to try to lose weight after her bariatric surgery. She is very conscious about her diet and exercise. She denies respiratory, cardiac, or GI problems. Past Medical History Past Medical History: Asthma, Hypertension Additional Past Medical History / Comment(s): Seasonal ALLERGIES. Osteopenia. Multiple back injections for pain. 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 History of Any Multi-Drug Resistant Organisms: None Reported Past Surgical History: Bariatric Surgery, Hernia Repair, Joint Replacement, Orthopedic Surgery Additional Past Surgical History / Comment(s): bilateral total knee replacement, right finger digits 2,3,5 left digits 2,3 arthiritis removed, bilateral bone fusion to thumbs , EGD GASTRIC SLEEVE 08/20/18. Past Anesthesia/Blood Transfusion Reactions: Postoperative Nausea & Vomiting (PONV) Additional Past Anesthesia/Blood Transfusion Reaction / Comment(s): antiemetic administered and "it helped alot' Past Psychological History: Anxiety Smoking Status: Former smoker Past Alcohol Use History: Rare (2 per year.) Additional Past Alcohol Use History / Comment(s): smoked from age 18 to 34 Past Drug Use History: Marijuana Additional Drug Use History / Comment(s): Has used medical marijuana for back pain, but stopped using this in 2021. - Past Family History Mother Family Medical History: Dementia Additional Family Medical History / Comment(s): Macular degeneration. Father Family Medical History: Myocardial Infarction ([place]) Additional Family Medical History / Comment(s): Aortic aneurysm and macular degeneration. Brother(s) Family Medical History: Renal Disease Medications and Allergies Home Medications Medication Instructions Recorded Confirmed Type lisinopriL [Prinivil] 10 mg PO QAM 08/06/18 10/18/22 History Calcium Citrate 500 mg PO BID 09/17/18 10/18/22 History Escitalopram [Lexapro] 20 mg PO DAILY 07/31/19 10/18/22 History Loratadine [Claritin] 10 mg PO DAILY 07/31/19 10/18/22 History Iron 65 mg PO DAILY 01/29/20 10/18/22 History Multivitamins, Thera [Multivitamin 1 tab PO DAILY 01/29/20 10/18/22 History (formulary)] Tiotropium 18 Mcg/Puff [Spiriva] 1 puff INHALATION DAILY 01/29/20 10/18/22 History Acetylcysteine [Nac] 600 mg PO DAILY 09/08/20 10/18/22 History Biotin [Biotin Disolve] 5,000 mcg PO BID 09/08/20 10/18/22 History Furosemide [Lasix] 20 mg PO DAILY 09/08/20 10/18/22 History Potassium Gluconate [Potassium 99 mg PO DAILY 09/08/20 10/18/22 History Gluconate ER] Glucosam/Fidel-Msm1/C/Michael/Bosw 1 each PO BID 09/23/20 10/18/22 History [Glucosamine-Chondroitin Tablet] Cholecalciferol [Vitamin D3 (10 630 mg PO BID 10/12/21 10/18/22 History Mcg = 400 Iu)] carvediloL [Coreg] 6.25 mg PO BID 10/12/21 10/18/22 History bisacodyL [Dulcolax] 5 mg PO DAILY PRN #30 tab 04/06/22 10/18/22 Rx Montelukast [Singulair] 10 mg PO HS 10/18/22 10/18/22 History Vitamin B Complex 1 each PO DAILY 10/18/22 10/18/22 History Allergies Allergy/AdvReac Type Severity Reaction Status Date / Time Sulfa (Sulfonamide Allergy Dyspnea Verified 10/18/22 14:04 Antibiotics) Exam Vital Signs Temp Pulse Resp BP Pulse Ox 10/18/22 14:04 98.0 F 74 18 124/84 96 Intake and Output 10/17/22 10/18/22 10/18/22 22:59 06:59 14:59 Other: Weight 102.512 kg Height 5 feet 6 inches, weight 226 pounds, BMI 36.5. This is a well-developed well-nourished white female who is alert and oriented times 3 in no acute distress. HEENT: Within normal limits. NECK: Supple without mass or thyromegaly. CHEST AND LUNGS: Clear to auscultation. HEART: Regular rate and rhythm. BREASTS: Are without mass or discharge. AXILLARY EXAM: Negative for adenopathy. BACK: Negative for CVA tenderness. ABDOMEN: Soft, nontender, without palpable masses. PELVIC EXAM: Normal external genitalia with mild atrophy. Cervix and vagina appear normal with mild atrophy. There is no unusual discharge. There is no evidence of prolapse. The uterus is midposition, nongravid size and nontender. There are no palpable adnexal masses or tenderness. RECTAL EXAM: Rectovaginal exam is negative for mass or tenderness and is negative for occult blood. EXTREMITIES: Nontender. IMPRESSION: 1. 62-year-old menopausal female with normal gynecologic exam. 2. History of osteopenia. 3. Continued gradual weight loss following bariatric surgery in 2019. PLAN: 1. Pap smear was deferred since she had a negative Pap smear cotest on 09/08/2020. 2. Self breast awareness was discussed with the patient. We have also discussed symptoms associated with inflammatory breast cancer. 3. Screening mammogram will be done today. 4. Osteoporosis prevention was discussed. I have stressed the importance of adequate calcium, vitamin D and regular exercise. Recommended amounts of calcium and vitamin D were also discussed. We will plan on repeating bone density testing in 1 year. 5. Colorectal cancer screening was discussed. She has been doing Cologuard testing through her PCP.
--- NOTE | 2022-10-19 09:40 | MM ---
Reason for Exam: Screening (asymptomatic). Last screening mammogram was performed 12 month(s) ago. Patient History: Menarche at age 11. Patient has no children. Postmenopausal. Other cancer. Estrogen, starting at age 50 for 2 years, 6 months. Progesterone, starting at age 50 for 2 years, 6 months. 09/08/2016, Benign Cyst Aspiration on the right side. Risk Values: Candice 5 year model risk: 1.7%. NCI Lifetime model risk: 7.4%. Prior Study Comparison: 10/11/2018 Bilateral Screening Mammogram, [facility]. 09/08/2020 Bilateral Screening Mammogram, [facility]. 10/12/2021 Bilateral MG 3D screening mammo w/cad, [facility]. Tissue Density: The breast tissue is heterogeneously dense. This may lower the sensitivity of mammography. Findings: Analyzed By CAD. There is no suspicious group of microcalcifications or new suspicious mass in either breast. Overall Assessment: Benign, BI-RAD 2 Management: Screening Mammogram of both breasts in 1 year. . Patient should continue monthly self-breast exams. A clinical breast exam by your physician is recommended on an annual basis. This exam should not preclude additional follow-up of suspicious palpable abnormalities. Note on Candice scores and lifetime risk: 1. A Candice score greater than 3% is considered moderate risk. If this is the case, consider specialist referral to assess eligibility for a risk reducing agent. 2. If overall lifetime risk for the development of breast cancer is 20% or higher, the patient may qualify for future screening with alternating mammogram and breast MRI. Electronically signed and approved by: Mc Benítez M.D. Radiologis
== END ==
LOC: WWCWWP 13:55
PROVIDERS: ATTEND Obstetrics & Gynecology
DX: Z01.419 Encounter for gynecological examination (general) (routine) without abnormal findings (principal); M85.80 Other specified disorders of bone density and structure, unspecified site; J45.909 Unspecified asthma, uncomplicated; I10 Essential (primary) hypertension; F41.9 Anxiety disorder, unspecified; Z12.31 Encounter for screening mammogram for malignant neoplasm of breast; Z78.0 Asymptomatic menopausal state; Z87.891 Personal history of nicotine dependence; Z88.1 Allergy status to other antibiotic agents; Z88.2 Allergy status to sulfonamides; Z98.84 Bariatric surgery status; Z79.899 Other long term (current) drug therapy
CPT/HCPCS: 77063; 77067

== ENCOUNTER → 2023-11-07 | Outpatient (CLI) | payer BC ==
--- NOTE | 2023-11-07 12:31 | P.HPOB ---
History of Present Illness H&P Date: 11/07/23 Chief Complaint: The patient is here for her routine gynecologic exam and ma mmogram. This is a 63-year-old G0 with an LMP of 2008. Patient is without gynecologic complaints. She continues to lose weight after her bariatric surgery in 2019. She has nearly reached her goal of 200 pounds. Review of Systems The patient has lost 22 pounds over the last year. Weight loss has been intentional. She has nearly reached her goal. She denies respiratory, cardiac, or G.I. problems. Past Medical History Past Medical History: Asthma, Hypertension Additional Past Medical History / Comment(s): Seasonal ALLERGIES. Osteopenia. Multiple back injections for pain. 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 History of Any Multi-Drug Resistant Organisms: None Reported Past Surgical History: Bariatric Surgery, Hernia Repair, Joint Replacement, Orthopedic Surgery Additional Past Surgical History / Comment(s): bilateral total knee replacement, right finger digits 2,3,5 left digits 2,3 arthiritis removed, bilateral bone fusion to thumbs , EGD GASTRIC SLEEVE 08/20/18. Abdominoplasty 2022. Past Anesthesia/Blood Transfusion Reactions: Postoperative Nausea & Vomiting (PONV) Additional Past Anesthesia/Blood Transfusion Reaction / Comment(s): antiemetic administered and "it helped alot' Past Psychological History: Anxiety Smoking Status: Former smoker Past Alcohol Use History: Rare (1 drink per year.) Additional Past Alcohol Use History / Comment(s): smoked from age 18 to 34 Past Drug Use History: Marijuana Additional Drug Use History / Comment(s): Has used medical marijuana for back pain, but stopped using this in 2021. 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 - Past Family History Mother Family Medical History: Dementia Additional Family Medical History / Comment(s): Macular degeneration. Father Family Medical History: Myocardial Infarction ([place]) Additional Family Medical History / Comment(s): Aortic aneurysm and macular degeneration. Brother(s) Family Medical History: Renal Disease Medications and Allergies Home Medications Medication Instructions Recorded Confirmed Type lisinopriL [Prinivil] 10 mg PO QAM 08/06/18 11/07/23 History Calcium Citrate 600 mg PO BID 09/17/18 11/07/23 History Escitalopram [Lexapro] 20 mg PO DAILY 07/31/19 11/07/23 History Loratadine [Claritin] 10 mg PO DAILY 07/31/19 11/07/23 History Iron 65 mg PO DAILY 01/29/20 11/07/23 History Multivitamins, Thera [Multivitamin 1 tab PO DAILY 01/29/20 11/07/23 History (formulary)] Tiotropium 18 Mcg/Puff [Spiriva] 1 puff INHALATION DAILY 01/29/20 11/07/23 History Acetylcysteine [Nac] 600 mg PO DAILY 09/08/20 11/07/23 History Biotin [Biotin Disolve] 5,000 mcg PO BID 09/08/20 11/07/23 History Furosemide [Lasix] 20 mg PO DAILY 09/08/20 11/07/23 History Potassium Gluconate [Potassium 99 mg PO DAILY 09/08/20 11/07/23 History Gluconate ER] Glucosam/Fidel-Msm1/C/Michael/Bosw 1 each PO BID 09/23/20 11/07/23 History [Glucosamine-Chondroitin Tablet] Cholecalciferol [Vitamin D3 (10 630 mg PO BID 10/12/21 11/07/23 History Mcg = 400 Iu)] carvediloL [Coreg] 6.25 mg PO BID 10/12/21 11/07/23 History Montelukast [Singulair] 10 mg PO HS 10/18/22 11/07/23 History Vitamin B Complex 1 each PO DAILY 10/18/22 11/07/23 History Benralizumab [Fasenra] 10 mg SQ DIRECTED 11/07/23 11/07/23 History Allergies Allergy/AdvReac Type Severity Reaction Status Date / Time Sulfa (Sulfonamide Allergy Dyspnea Verified 11/07/23 11:51 Antibiotics) Exam Intake and Output 11/06/23 11/07/23 11/07/23 22:59 06:59 14:59 Other: Weight 92.533 kg Height 5 feet 5 inches, weight 204 pounds, BMI 33.9. Blood pressure 124/92, temperature 98.1, pulse 79, pulse oximeter 99%. This is a well-developed well-nourished white female who is alert and oriented times 3 in no acute distress. HEENT: Within normal limits. NECK: Supple without mass or thyromegaly. CHEST AND LUNGS: Clear to auscultation. There is a prominent soft tissue area surrounding the medial aspect of the right clavicle. This seems slightly asymmetric compared to the left side. The area is nontender. HEART: Regular rate and rhythm. BREASTS: Are without mass or discharge. AXILLARY EXAM: Negative for adenopathy. BACK: Negative for CVA tenderness. ABDOMEN: Soft, nontender, without palpable masses. PELVIC EXAM: Normal external genitalia with mild atrophy. Cervix and vagina appear normal with mild atrophy. There is no unusual discharge. There is no evidence of prolapse. The uterus is midposition, nongravid size and nontender. There are no palpable adnexal masses or tenderness. RECTAL EXAM: Rectovaginal exam is negative for mass or tenderness and is negative for occult blood. EXTREMITIES: Nontender. IMPRESSION: 1. 63-year-old menopausal female with normal gynecologic exam. 2. Prominent area of soft tissue around the medial aspect of the right clavicle. Differential diagnosis will include prominence of the bone, arthritis near the joint, a pulled muscle going to that area, or other. 3. History of osteopenia. PLAN: 1. Pap smear was deferred since she had a negative Pap smear cotest on 09/08/2020. 2. Self breast awareness was discussed with the patient. We have also discussed symptoms associated with inflammatory breast cancer. 3. Screening mammogram will be done today. 4. Osteoporosis prevention was discussed. She was not able to do a bone density test today since bone density testing was not done temporarily because of the computer problem. She will schedule this in the near future. The order slip was given to the patient for this. 5. She will follow-up with her PCP regarding the soft tissue area near the medial aspect of the right clavicle. States she has an appointment with her within the next 2 weeks. 6. She was advised to return in one year for her annual well woman exam.
== END ==
LOC: WWCWWP 11:16
PROVIDERS: ATTEND Obstetrics & Gynecology
DX: Z01.419 Encounter for gynecological examination (general) (routine) without abnormal findings (principal); M85.80 Other specified disorders of bone density and structure, unspecified site; Z78.0 Asymptomatic menopausal state; Z87.891 Personal history of nicotine dependence; Z88.2 Allergy status to sulfonamides

== ENCOUNTER → 2023-11-10 | Outpatient (CLI) | payer BC ==
--- NOTE | 2023-11-10 19:22 | BD ---
EXAMINATION TYPE: Axial Bone Density DATE OF EXAM: 11/10/2023 CLINICAL HISTORY: 63 years old Female. ICD-10 CODE: Z78.0 ASYMPTOMATIC Height: 65.5in Weight: 203lb FRAX RISK QUESTIONS: History of Fracture in Adulthood: no Secondary Osteoporosis: 3. Menopause before 45: yes RISK FACTORS HISTORY OF: History of Wrist Fracture: left wrist When: age 16 Surgery to Spine/Hip(right/left)/Wrist (right/left): hien wrists- thumb/wrist fusion When: 10-20 years ago MEDICATIONS: EXAM MEASUREMENTS: Bone mineral densitometry was performed using the [employer] System. Bone mineral density as measured about the Lumbar spine is: ----- L1-L4(G/cm2): 1.240 T Score Values are as follows: ----- L1: 0.9 ----- L2: 0.6 ----- L3: -0.5 ----- L4: 0.8 ----- L1-L4: 0.5 Z Score Values are as follows: ----- L1: 1.5 ----- L2: 1.1 ----- L3: 0.0 ----- L4: 1.4 ----- L1-L4: 1.0 Bone mineral density has: Decreased -6.1% since study of: 10-12-21 Bone mineral density about the R hip (g/cm2): 0.859 Bone mineral density about the L hip (g/cm2): 0.812 T Score values are as follows: -----R Neck: -2.0 -----L Neck: -1.9 -----R Total: -1.2 -----L Total: -1.6 Z Score values are as follows: -----R Neck: -1.2 -----L Neck: -1.1 -----R Total: -0.7 -----L Total: -1.1 Bone mineral density has: Decreased -9.6% since study of: 10-12-21 FRAX%s: The graph provided illustrates a 10.0% chance for a major osteoporotic fx and a 1.4% chance f or the hips probability for fx in 10 years time. IMPRESSION: Osteopenia (T Score between -2.5 and -1). There is slightly increased risk of fracture and the patient may be considered for treatment. Re-Screen 2-5 years. NOTE: T-SCORE=SD OF THE YOUNG ADULT MEAN.
== END | disposition home or self-care (01) ==
LOC: RADBDWWP 14:48
PROVIDERS: ATTEND Obstetrics & Gynecology
DX: Z01.419 Encounter for gynecological examination (general) (routine) without abnormal findings (principal); M85.89 Other specified disorders of bone density and structure, multiple sites; Z78.0 Asymptomatic menopausal state
CPT/HCPCS: 77080